=== PATIENT | female | born 1995 | race Caucasian/White ===

== ENCOUNTER → 2017-12-24 08:48 | Outpatient (CLI) | payer MEDICAID, SELFPAY ==
[2017-12-24 09:45] LABS: Glucose,Fasting 90 mg/dL (60-105)
== END ==
PROVIDERS: PCP Emergency Medicine; Visit Provider Obstetrics & Gynecology
DX: A49.9 Bacterial infection, unspecified (principal)
CPT/HCPCS: 82947

== ENCOUNTER → 2018-04-11 09:29 | Outpatient (CLI) | payer MEDICAID, SELFPAY ==
[2018-04-11 17:13] LABS: Basophils % 0.4 % (0.1-2.0); Eosinophils # 0.1 K/mm3 (0.0-0.4); Eosinophils % 1.1 % (0.1-12.0); Hematocrit 47.2 % (37.0-47.0); Hemoglobin 15.8 g/dL (12.2-16.2); Lymphocytes # 2.5 K/mm3 (0.7-4.5); Lymphocytes % 28.7 K/mm3 (10-50); Mean Corpuscular HGB Conc 33.4 g/dL (31.8-35.4); Mean Corpuscular Hemoglobin 30.3 pg (27.0-31.2); Mean Corpuscular Volume 90.7 fl (81-99); Monocytes # 0.3 K/mm3 (0.1-1.0); Monocytes % 3.8 % (1.7-9.3); Neutrophils # 5.7 K/mm3 (1.8-7.8); Platelet Count 341 K/mm3 (142-424); Red Blood Count 5.21 M/mm3 (4.20-5.40); Red Cell Distribution Width 11.9 % (11.5-17.5); White Blood Count 8.7 K/mm3 (4.8-10.8)
[2018-04-11 17:30] LABS: Alanine Aminotransferase 25 U/L (12-78); Albumin Level 4.7 gm/dL (3.4-5.0); Albumin/Globulin Ratio 1.5 (1.1-1.8); Alkaline Phosphatase 99 U/L (46-116); Anion Gap 15.1 mEq/L (5-15); Aspartate Amino Transferase 20 U/L (15-37); Bilirubin,Total 0.5 mg/dL (0.2-1.0); Blood Urea Nitrogen 10 mg/dL (7-18); Calcium 9.4 mg/dL (8.5-10.1); Carbon Dioxide 28 mmol/L (21.0-32.0); Chloride 101 mmol/L (98-107); Cholesterol 215 mg/dL (140-200); Creatinine,Serum 0.68 mg/dL (0.55-1.02); Estimated Glomerular Filt Rate 109 ml/min (>60); GFR (African American) 132 ML/MIN (>60); Globulin 3.1 gm/dl (1.3-3.2); Glucose 74 mg/dL (74-106); HDL Cholesterol 43 mg/dL (29-89); LDL Cholesterol 155 mg/dL (0-130); Potassium 4.1 mmoL/L (3.5-5.1); Sodium 140 mmol/L (136-145); T4 (Thyroxine) 9.5 ug/dl (4.7-13.3); Thyroid Stimulating Hormone 1.45 uIU/ml (0.358-3.740); Total Protein,Serum 7.8 gm/dL (6.4-8.2); Triglycerides 86 mg/dL (30-200); VLDL Cholesterol 17 mg/dL (0-40)
[2018-04-12 18:41] LABS: HIV Screen 4th Generation wRfx Non Reactive (Non Reactive); Hepatitis B Core Antibody IgM Negative (Negative)
[2018-04-14 06:10] LABS: HSV 2 IgG, Type Spec <0.91 index (0.00-0.90); Vitamin D 25 Hydroxy 26.1 ng/mL (30.0-100.0)
[2018-04-14 06:11] LABS: Rapid Plasma Reagin Ab Titer Non Reactive (NonRea<1:1)
== END ==
PROVIDERS: Nurse Practitioner Family; Visit Provider Obstetrics & Gynecology
DX: Z01.419 Encounter for gynecological examination (general) (routine) without abnormal findings (principal); B00.2 Herpesviral gingivostomatitis and pharyngotonsillitis; Z11.3 Encounter for screening for infections with a predominantly sexual mode of transmission
CPT/HCPCS: 36415; 80053; 80061; 82652; 84436; 84443; 85025; 86592; 86695; 86703; 86704; 86790; G0432

== ENCOUNTER → 2019-02-13 09:07 | Outpatient (CLI) | payer OTHER, MEDICAID, SELFPAY ==
--- NOTE | 2019-02-13 09:14 | XR_ITS ---
XR shoulder RT min 2V HISTORY: ITS.REASON: RT SHOULDER PAIN ORDERING PHYSICIAN: Marycarmen Sheffield PATIENT AGE: 23 years Comparison: None FINDINGS: No fracture or dislocation. No lytic or blastic change. There is normal mineralization. The joint spaces are well-preserved. No significant degenerative/arthritic changes. No erosive changes evident. IMPRESSION: Negative, no acute finding
== END ==
PROVIDERS: PCP Emergency Medicine; Visit Provider Nurse Practitioner Family
DX: M25.511 Pain in right shoulder (principal)
CPT/HCPCS: 73030

== ENCOUNTER 2019-03-30 08:30 | Outpatient (RCR) | payer OTHER, MEDICAID, SELFPAY | END 2019-03-30 08:35 | disposition home or self-care (01) | LOC: OT 08:30 | PROVIDERS: Visit Provider Orthopaedic Surgery Adult Reconstructive Orthopaedic Surgery | DX: M25.511 Pain in right shoulder (principal) | CPT/HCPCS: 97014; 97033; 97035; 97110; 97140; 97165; G0283 ==

== ENCOUNTER → 2019-04-23 12:26 | Outpatient (CLI) | payer OTHER, MEDICAID, SELFPAY ==
--- NOTE | 2019-04-23 12:30 | IR_ITS ---
MR shoulder RT w con, IR arthrogram shoulder RT HISTORY:Right shoulder injury with pain, limited range of motion ITS.REASON: RIGHT SHOULDER PAIN ORDERING PHYSICIAN: Altaf Wilcox PATIENT AGE: 23 years Comparison: None Arthrogram technique: Following obtaining informed consent and timeout under aseptic conditions and local anesthesia with 1% buffered lidocaine with fluoroscopic guidance a 23-gauge needle was inserted into the shoulder joint via the anterior subcoracoid approach 12 mL's of a mixture of gadolinium, Optiray 320, and lidocaine is injected. The patient tolerated the procedure well without evidence of immediate complication. Arthrographic images are obtained and then the patient was taken to MRI where MRI arthrogram was performed. Arthrographic findings: Contrast is localized within the shoulder joint as expected. There is no evidence of rotator cuff tear. No evidence of capsulitis. MRI findings: No evidence of rotator cuff tear. There is mild thickening of the supraspinatus tendon suggesting tendinopathy/tendinosis. There is extravasation into the subscapular region which was manifest on the post exercise images. The infraspinatus subscapularis and teres minor tendons are intact. There is a SLAP tear of the glenoid labrum. Posterior labrum has an unremarkable appearance. Bicipital tendon is in place. IMPRESSION: 1. SLAP tear of the anterior glenoid labrum. 2. Tendinopathy/tendinosis of the supraspinatus tendon.
== END ==
PROVIDERS: PCP Emergency Medicine; Visit Provider Orthopaedic Surgery Adult Reconstructive Orthopaedic Surgery
DX: S43.431A Superior glenoid labrum lesion of right shoulder, initial encounter (principal); M75.91 Shoulder lesion, unspecified, right shoulder
CPT/HCPCS: 73040; 73222; Q9967

== ENCOUNTER 2019-07-24 13:00 | Outpatient (RCR) | payer OTHER, MEDICAID, SELFPAY | END 2019-07-24 13:05 | disposition home or self-care (01) | LOC: OT 13:00 | PROVIDERS: Visit Provider Orthopaedic Surgery Adult Reconstructive Orthopaedic Surgery | DX: S43.431D Superior glenoid labrum lesion of right shoulder, subsequent encounter (principal); M75.41 Impingement syndrome of right shoulder | CPT/HCPCS: 97014; 97110; 97140; 97164; 97166; G0283 ==

== ENCOUNTER 2019-12-07 13:30 | Outpatient (RCR) | payer OTHER, SELFPAY | END 2019-12-07 13:35 | disposition home or self-care (01) | LOC: OT 13:30 | PROVIDERS: Visit Provider Orthopaedic Surgery Adult Reconstructive Orthopaedic Surgery | DX: S43.431A Superior glenoid labrum lesion of right shoulder, initial encounter (principal) | CPT/HCPCS: 97014; 97110; 97164; 97165; G0283 ==

== ENCOUNTER → 2020-07-08 14:50 | Outpatient (CLI) | payer OTHER, SELFPAY ==
--- NOTE | 2020-07-08 14:50 | US_ITS ---
PROCEDURE: US TRANSVAGINAL CLINICAL INDICATION: US T/V-DUB check IUD placement Dysfunctional uterine bleeding COMPARISON: US PTV US PELVIS-TRANSVAGINAL ONLY from 12/27/2016 FINDINGS: UTERUS: 8cm x 5cmx 3cm with a combined endometrial thickness of 4.1mm LEFT OVARY: [id number] with a volume of 10.6ml. RIGHT OVARY: [id number] with a volume of 14.4ml. There is an IUD present. The longitudinal component of the IUD is in the endometrium but is slightly low lower than expected not at the uterine fundus. The arms of the IUD extend lateral as expected. There are some calcifications noted within the endometrium at the fundus of the endometrium. Multiple small follicles are present involving the right ovary which is slightly enlarged with a volume of 14 mL. Multiple follicles also present involving the left ovary. The left ovary has a volume of 11 mL. No cul-de-sac fluid evident. IMPRESSION: 1. Low position of IUD overall not significantly changed. 2. Calcifications within the endometrium at the fundus of the uterus. 3. Bilateral ovarian polycystic appearance Dictated by: Christian Salazar MD 07/08/2020 16:17 Christian Salazar MD in [place] 07/08/2020 16:17
== END ==
PROVIDERS: PCP Nurse Practitioner Family; Visit Provider Obstetrics & Gynecology
DX: N93.8 Other specified abnormal uterine and vaginal bleeding (principal)
CPT/HCPCS: 76830

== ENCOUNTER → 2020-07-29 10:29 | Outpatient (CLI) | payer OTHER, SELFPAY ==
--- NOTE | 2020-07-29 10:33 | US_ITS ---
PROCEDURE: US EXTREMITY RT LIMITED CLINICAL INDICATION: RT AXILLA MASS COMPARISON: No exams were available for comparison FINDINGS: Ultrasound performed of the right axilla. There is a palpable nodule in the subcutaneous tissue which measures approximately 10 x 4 mm. This is hypoechoic and fairly well-circumscribed and may represent a small subcutaneous lymph node. This does not appear to represent an abscess. A small subcutaneous fibroma is also consideration. IMPRESSION: Hypoechoic 10 x 4 mm nodule in the right axilla corresponding to the palpable abnormality and could be due to small lymph node possibly a neuroma/fibroma. Recommend follow-up to confirm stability Dictated by: Christian Salazar MD 07/29/2020 13:20 Christian Salazar MD in [place] 07/29/2020 13:20
== END ==
PROVIDERS: PCP Nurse Practitioner Family; Visit Provider Nurse Practitioner Family
DX: R22.31 Localized swelling, mass and lump, right upper limb (principal)
CPT/HCPCS: 76882

== ENCOUNTER → 2020-08-03 11:16 | Outpatient (CLI) | payer OTHER, SELFPAY ==
[2020-08-03 11:50] LABS: Basophils % 0.4 % (0.1-2.0); Eosinophils # 0.1 K/mm3 (0.0-0.4); Eosinophils % 1.4 % (0.1-12.0); Hemoglobin 15.5 g/dL (12.2-16.2); Lymphocytes # 2.3 K/mm3 (0.7-4.5); Lymphocytes % 31.5 % (10-50); Mean Corpuscular HGB Conc 34.5 g/dL (31.8-35.4); Mean Corpuscular Hemoglobin 30.7 pg (27.0-31.2); Mean Platelet Volume 7.7 fl (7.4-10.4); Monocytes # 0.3 K/mm3 (0.1-1.0); Monocytes % 3.8 % (1.7-9.3); Neutrophils # 4.6 K/mm3 (1.8-7.8); Neutrophils % 63.1 % (37.0-80.0); Platelet Count 264 K/mm3 (142-424); Red Blood Count 5.06 M/mm3 (4.20-5.40); Red Cell Distribution Width 12.6 % (11.5-17.5); White Blood Count 7.2 K/mm3 (4.8-10.8)
[2020-08-03 12:10] LABS: Urine Pregnancy, HCG Qual. Negative (Negative)
[2020-08-03 12:54] LABS: Alanine Aminotransferase 13 U/L (12-78); Albumin Level 4.7 g/dl (3.5-5.0); Albumin/Globulin Ratio 1.8 (1.1-1.8); Alkaline Phosphatase 66 U/L (38-126); Anion Gap 12.4 mEq/L (5-15); Aspartate Amino Transferase 24 U/L (14-36); Bilirubin,Total 0.8 mg/dl (0.2-1.3); Blood Urea Nitrogen 12 mg/dl (7-17); Calcium 9.6 mg/dl (8.4-10.2); Carbon Dioxide 29 mmol/L (22.0-30.0); Chloride 103 mmol/L (98-107); Estimated Glomerular Filt Rate 103 ml/min (>60); GFR (African American) 124 ML/MIN (>60); Globulin 2.6 g/dL (1.3-3.2); Glucose 93 mg/dl (74-100); Potassium 4.4 mmoL/L (3.5-5.1); Sodium 140 mmol/L (136-145); Total Protein,Serum 7.3 g/dl (6.3-8.2)
[2020-08-03 14:34] LABS: Coronavirus 19 IgG Antibody Negative (Negative); Coronavirus 19 IgM Antibody Negative (Negative)
== END ==
PROVIDERS: Visit Provider Obstetrics & Gynecology
DX: Z01.818 Encounter for other preprocedural examination (principal); R10.2 Pelvic and perineal pain
CPT/HCPCS: 36415; 80053; 81025; 85025; 86328

== ENCOUNTER 2020-08-05 10:43 | Day surgery (SDC) | payer OTHER, SELFPAY ==
[2020-08-02 15:23] VITALS: BMI 20.9
[2020-08-05] VITALS (10 sets, daily range): BP systolic 111–125; BP diastolic 57–86; PULSE 62–82; RESP 18; TEMP 36.2–36.5; O2SAT 95–99
--- NOTE | 2020-08-05 11:44 | P.PN_ITS ---
[facility] Anesthesia Checklist - Patient Identification Patient Identification: Arm Band - Structural Data Admitted From: Home Planned Operative Procedure/s: Hysteroscopy, D&C, Novasure Ablation, Dx Laparoscopy, BTL, IUD removal Consent for Planned Operative Procedure(s) Verified: Yes Verified Documents: Surgical Consent, History and Physical - NPO Status Verified Time NPO: 00:00 - Additional verifications Anesthesia Reactions: No Hx Blood Transfusions: No Blood Transfusion Reaction: No - Airway Assessment C-Spine Mobility Assessed: Yes (mp1) TMJ Mobility Assessed: Yes Dentition: Good Dentition - Neurological Assessment Level of Consciousness: Awake, Alert - Anesthesia Plan Anesthesia Risk discussed: Yes Anesthesia Plan: Verified ASA Class: II Anesthesia Type: General [facility] History I have reviewed the patient's past medical history: Yes Medical History: Denies:: Cancer, Diabetes Mellitus Type 1, Diabetes Mellitus Type 2, Internal Pacemaker, MRSA, Seizures *Have you ever received a pneumonia vaccine?: No *Have you received a flu vaccine this season?: No Other Medical History: Reports: Other. Denies: Blood Transfusion Reaction Anesthesia experience/problems:: nac Laterality Cases: Bilateral: Tonsillectomy Other Surgeries: Yes: Dilation and Curettage, Other. No: Pacemaker Amputation: No Fractures: No - *Social History Smoking Status: Current every day smoker Tobacco Type: cigarettes # Packs/Day (cigarettes): 1 #Yrs smoked (if former smoker): 3 Alcohol Intake: never Alcohol Intake Frequency:: a few times a month Substance Use Type: denies use *Occupational Status:: employed Housing: house Household Members: children *Travel in the last 8 weeks: None Family Hx:: Hypertension, Cancer [employer]LECTION MANAGER history: Non-contributory
--- NOTE | 2020-08-05 16:19 | P.PN_ITS ---
[facility] Anesthesia Record Part I Intake, IV Amount: 950 Estimated blood loss (mL): 10 Urine output (mL): 25 Blood Products used (#): none Blood Pressure: 118/86 SaO2: 95 Pulse Rate: 82 Respiratory Rate: 18 Temperature: 97.7 F Patient is:: Drowsy, Stable Stable to PACU at:: 16:15
--- NOTE | 2020-08-05 16:19 | HMH.OPNOTE ---
Date of procedure: 08/05/20 Pre-op Diagnosis:: 1. DUB 2. HMB 3. Pelvic pain 4. endometriosis 5. PCOS 6. IUD in place 7. Undesired fertility Post-op Diagnosis:: same Procedure performed:: 1. IUD Removal 2. Laparoscopic tubal ligation 3. D&C Hysteroscopy 4. Novasure endometrial ablation Surgeon:: Angela Villatoro MD CIRCULAR SHEAR OPERATOR:: Bala Recinos Anesthesia: GETA Estimated blood loss (mL): 10 Operative findings:: grossly normal ovaries bilaterally grossly normal fallopian tubes bilaterally grossly normal uterus and endometrial cavity Operative note:: The IUD strings were grasped with a ring forcep and the IUD was removed, intact, without complication. LAPAROSCOPY: The patient was taken to the operating room and general anesthesia was administered. She was prepped/draped in lithotomy position. A uterine manipulator was placed without difficulty. Gloves were changed and attention was turned to the abdomen. A 5mm skin incision was made in the umbilical fold and the Verees needle was inserted through the peritoneum and into the abdominal cavity in standard fashion. The abdomen was insufflated with CO2 gas. A 5mm non-bladed trocar was inserted directly into the abdominal cavity and appropriate placement was confirmed with the laparoscope. No intra-abdominal injuries occurred during entry into the abdominal cavity, as confirmed visually with the laparoscope. The patient was placed in trendelenburg and a 8mm skin incision was made 2cm above the pubic symphysis. A 8mm non-bladed trocar was inserted under direct visualization, without complication. The uterus was elevated out of the pelvis in order to better visualize the anatomy. A survey of the pelvis and abdomen revealed the findings noted above. The uterus was angled towards the patient right and the left fallopian tube was grasped and a Filshie clip was placed over the tube. The clip was noted to completely occlude the tube, but an additional clip was placed across the tube medial to the first clip, as an additional precaution. The uterus was then angled towards the patient left, and the right fallopian tube was grasped and a Filshie clip was placed over the tube. The clip was noted to completely occlude the tube, but an additional clip was placed across the tube medial to the first clip, as an additional precaution. The uterine manipulator was removed. The abdomen was then evacuated of gas and all trocars removed. The skin incisions were closed with Dermabond. The patient tolerated the procedure well. Sponge/lap/needle/instrument counts were correct at conclusion of procedure. She was taken out of lithotomy position and awakened from anesthesia, and was taken to the recovery room in stable condition. HYSTEROSCOPY: Attention was then turned to the vagina, and the uterine manipulator was removed. The anterior lip of the cervix was grasped with a single tooth tenaculum and the cervix was dilated with Link dilators of serially increasing size until the external os was able to accomodate the hysteroscope. The hysteroscope was advanced through the cervix and into the uterine cavity, which was distended with LR. Once the uterus was sufficiently distended, the cavity was evaluated and revealed no polyps or fibroids. Sharp curettage was performed and the specimen sent for pathology. The uterine cavity sounded to a length of 4.5cm. The Novasure was inserted through the cervix and expanded to fit the width of the uterus, with a width of 3.1cm. After a successful cavity assessment, the device was deployed and the endometrial ablation was completed in 110 seconds. Once the device had turned off, the Novasure was removed from the uterus and the hysteroscope was reinserted into the uterine cavity. The cavity appeared diffusely cauterized. The hysteroscope was removed from the uterus and all instruments removed from the vagina. The tenaculum site was hemostatic. All sponge/lap/
--- NOTE | 2020-08-05 16:34 | PC.NURSE ---
1625- pt shivering, warm blankets on- pt states she is not cold. see emar for medicinal chemist
--- NOTE | 2020-08-05 17:26 | PC.ADMIT ---
[id number] Admission Note: The patient,Leda Deng,25 y/o, was given written information regarding hospital policies, unit procedures and contact persons. Patient's smoking status: Current every day smoker. Vital Signs - 8 hr 08/05/20 11:25 08/05/20 16:15 08/05/20 16:20 Temperature 97.7 F 97.7 F 97.7 F Pulse Rate 82 Pulse Rate [Right Brachial] 70 82 Respiratory Rate 18 18 18 Blood Pressure 118/86 Blood Pressure [Right Arm] 119/67 118/86 02 Sat by Pulse Oximetry 98 95 08/05/20 16:25 08/05/20 16:35 08/05/20 16:45 Temperature Pulse Rate Pulse Rate [Right Brachial] 72 63 62 Respiratory Rate 18 18 18 Blood Pressure Blood Pressure [Right Arm] 123/83 122/82 125/77 02 Sat by Pulse Oximetry 96 96 96 08/05/20 16:46 08/05/20 17:01 08/05/20 17:14 Temperature 97.2 F L Pulse Rate Pulse Rate [Right Brachial] 75 63 63 Respiratory Rate 18 18 18 Blood Pressure Blood Pressure [Right Arm] 119/70 111/57 L 116/68 02 Sat by Pulse Oximetry 98 99 99
--- NOTE | 2020-08-05 17:27 | SUR.PHASEII ---
Pt still nauseated but tolerating. Phenergan 6.25mg IV given per Zev COLON.
--- NOTE | 2020-08-06 02:54 | HMH.ANESII ---
[facility] Anesthesia Record Part II Discharge Time: 16:45 Destination: Surgical Day Care (OP Surgery) PACU nurse assessment reviewed?: Yes Patient Condition:: Good Anesthesia Complications:: None Swallowing reflex intact?: Yes Cyanosis?: No Blood Pressure: 119/70 Pulse Rate: 75 Temperature: 97.2 F Mental Status: Alert & Oriented Pain level:: 2 Nausea and/or vomitting:: None Intake, IV Amount: 25
[2020-08-06 02:55] VITALS: BP 119/70; PULSE 75; TEMP 36.2
== END 2020-08-05 17:27 | disposition home or self-care (01) ==
LOC: OR 10:45
PROVIDERS: PCP Nurse Practitioner Family; Visit Provider Obstetrics & Gynecology
PROC: 0U5B8ZZ Destruction of Endometrium, Via Natural or Artificial Opening Endoscopic (ICD-10-PCS; CPT 58563; principal; 2020-08-05 13:00)
DX: N93.8 Other specified abnormal uterine and vaginal bleeding (principal); N92.6 Irregular menstruation, unspecified; E28.2 Polycystic ovarian syndrome; N80.9 Endometriosis, unspecified; Z97.5 Presence of (intrauterine) contraceptive device; Z30.2 Encounter for sterilization; Z90.89 Acquired absence of other organs; Z72.0 Tobacco use; Z80.9 Family history of malignant neoplasm, unspecified; Z82.49 Family history of ischemic heart disease and other diseases of the circulatory system; Z88.1 Allergy status to other antibiotic agents; Z91.048 Other nonmedicinal substance allergy status
CPT/HCPCS: 58301; 58671; 58563; 96374; J2405; J2710

== ENCOUNTER → 2021-08-14 16:48 | Outpatient (CLI) | payer OTHER, SELFPAY ==
[2021-08-14 18:15] LABS: HCG,Quantitative < 2 mIU/ml (0-5.42)
== END ==
PROVIDERS: Visit Provider Obstetrics & Gynecology
DX: Z32.00 Encounter for pregnancy test, result unknown (principal)
CPT/HCPCS: 36415; 84702

== ENCOUNTER 2022-01-23 17:59 | Emergency (ER) | payer BC, OTHER, SELFPAY ==
[2022-01-23 18:20] VITALS: BP 131/68; PULSE 69; RESP 18; TEMP 36.7; O2SAT 100; BMI 20.9
[2022-01-23 18:54] LABS: Microscopic, Urine URINE MICROSCOPIC (MICROSCOPIC)
[2022-01-23 18:56] LABS: Basophils # 0.2 K/mm3 (0-0.2); Basophils % 2.7 % (0.1-2.0); Eosinophils # 0.1 K/mm3 (0.0-0.4); Eosinophils % 0.9 % (0.1-12.0); Hematocrit 43.1 % (37.0-47.0); Hemoglobin 14.2 g/dL (12.2-16.2); Lymphocytes # 2.9 K/mm3 (0.7-4.5); Lymphocytes % 36.9 % (10-50); Mean Corpuscular Hemoglobin 30.6 pg (27.0-31.2); Mean Corpuscular Volume 92.6 fl (81-99); Mean Platelet Volume 8.3 fl (7.4-10.4); Monocytes # 0.3 K/mm3 (0.1-1.0); Monocytes % 3.9 % (1.7-9.3); Neutrophils # 4.4 K/mm3 (1.8-7.8); Neutrophils % 55.6 % (37.0-80.0); Platelet Count 257 K/mm3 (142-424); Red Blood Count 4.66 M/mm3 (4.20-5.40); Red Cell Distribution Width 12.8 % (11.5-17.5); White Blood Count 7.9 K/mm3 (4.8-10.8)
[2022-01-23 18:59] LABS: Chloride 96 mmol/L (98-107); Potassium 3.4 mmoL/L (3.5-5.1); Sodium 132 mmol/L (136-145)
[2022-01-23 19:02] LABS: Alanine Aminotransferase 14 U/L (12-78); Albumin Level 4.8 g/dl (3.5-5.0); Albumin/Globulin Ratio 1.8 (1.1-1.8); Alkaline Phosphatase 58 U/L (38-126); Anion Gap 10.4 mEq/L (5-15); Aspartate Amino Transferase 29 U/L (14-36); Bilirubin,Total 0.5 mg/dl (0.2-1.3); Blood Urea Nitrogen 10 mg/dl (7-17); Calcium 8.4 mg/dl (8.4-10.2); Carbon Dioxide 29 mmol/L (22.0-30.0); Creatinine Clearance Estimated 138 mL/min (50-200); Estimated Glomerular Filt Rate 122 ml/min (>60); GFR (African American) 147 ML/MIN (>60); Globulin 2.6 g/dL (1.3-3.2); Glucose 79 mg/dl (74-100); Total Protein,Serum 7.4 g/dl (6.3-8.2)
[2022-01-23 19:03] LABS: Appearance,Urine CLEAR (Clear); Bilirubin,Urine Negative (Negative); Blood, Urine Negative (Negative); Color,Urine YELLOW (Yellow); Glucose,Urine (UA) Negative (Negative); Ketones,Urine Negative (Negative); Leukocyte Esterase,Urine Negative (Negative); Nitrate,Urine Negative (Negative); Protein,Urine Negative (Negative); Urobilinogen,Urine 0.2 EU/dl (0.2)
--- NOTE | 2022-01-23 19:04 | HMH.EDGENADL ---
ED Disposition Clinical Impression: Right sided abdominal pain Disposition: Home, Self-Care Condition on Discharge: Good Instructions: DI for Abdominal Pain-Adult Additional Instructions: Follow-up with your primary care provider to discuss gallbladder ultrasound. Additional instructions for ABDOMINAL PAIN: See your physician as soon as possible for further evaluation. Return immediately if worsening abdominal pain, vomiting, shortness of breath, fever, vomiting of blood or abdominal distention. Referrals: Myrna Mixon APRN [Primary Care Provider] - - Critical Care Critical Care Time: No Attestation: On 01/23/22, the high probability of a clinically significant, sudden or life threatening deterioration of the following system(s) required my full and direct attention, intervention and personal management. The time I documented below is in addition to time spent performing reported procedures but includes the following listed in this critical care notation. Medical Decision Making - Marcel Inquiry Pt receiving controlled substance: No Vital Signs: 01/23/22 18:20 Temperature 98.1 F Temperature Source Oral Pulse Rate [Left Radial] 69 Respiratory Rate 18 Blood Pressure [Right Arm] 131/68 Blood Pressure Mean [Right Arm] 89 02 Sat by Pulse Oximetry 100 - Lab Data Lab Results 01/23/22 18:19: Urine Color Yellow, Urine Appearance Clear, Urine pH 8.0, Ur Specific Bradley 1.020, Urine Protein Negative, Urine Glucose (UA) Negative, Urine Ketones Negative, Urine Blood Negative, Urine Nitrate Negative, Urine Bilirubin Negative, Urine Urobilinogen 0.2, Ur Leukocyte Esterase Negative, Urine RBC None, Urine WBC 3-5, Ur Squamous Epith Cells 5-10, Urine Bacteria Trace 01/23/22 18:19: WBC 7.9, RBC 4.66, Hgb 14.2, Hct 43.1, MCV 92.6, MCH 30.6, MCHC 33.0, RDW 12.8, Plt Count 257, MPV 8.3, Neut % (Auto) 55.6, Lymph % (Auto) 36.9, Gove % (Auto) 3.9, Eos % (Auto) 0.9, Baso % (Auto) 2.7 H, Neut # (Auto) 4.4, Lymph # (Auto) 2.9, Gove # (Auto) 0.3, Eos # (Auto) 0.1, Baso # (Auto) 0.2 01/23/22 18:19: Sodium 132 L, Potassium 3.4 L, Chloride 96 L, Carbon Dioxide 29, Anion Gap 10.4, BUN 10, Creatinine 0.60, Estimated Creat Clear 138, Estimated GFR 122, Est GFR ( Amer) 147, Glucose 79, Calcium 8.4, Total Bilirubin 0.5, AST 29, ALT 14, Alkaline Phosphatase 58, Total Protein 7.4, Albumin 4.8, Globulin 2.6, Albumin/Globulin Ratio 1.8 01/23/22 18:19: Lipase 32 01/23/22 18:19: Serum HCG, Qual Negative Result diagrams: 01/23/22 18:19 01/23/22 18:19 Orders (Tests/Meds): ED MEDICATIONS Generic Name Dose Route Start Last Admin Trade Name Freq PRN Reason Stop Dose Admin Sodium Chloride 10 ml 01/23/22 18:32 Sodium Chloride 0.9% 10ml Flush Syringe IV 02/22/22 18:31 NEEDED PRN Maintain IV Site Discontinued Medications Generic Name Dose Route Start Last Admin Trade Name Freq PRN Reason Stop Dose Admin Iopamidol 75 ml 01/23/22 19:36 01/23/22 19:37 Iopamidol-370 (76%);100ml Bottle IV 01/23/22 19:37 75 ml ONCE ONE Administration Sodium Chloride 10 ml 01/23/22 19:36 01/23/22 19:37 Sodium Chloride 0.9% 10ml Syr (Rad Only) IV 01/23/22 19:37 10 ml ONCE ONE Administration - CT Data CT Scan: Abdomen, Pelvis Time Received: 20:[address] Reviewed: Yes: I have viewed the radiologist's interpretation Findings Narrative: PROCEDURE INFORMATION: Exam: CT Abdomen And Pelvis With Contrast Exam date and time: 01/23/2022 7:11 PM Age: 26 years old Clinical indication: Abdominal pain; Localized; Right; Additional info: Right sided abdominal pain TECHNIQUE: Imaging protocol: Computed tomography of the abdomen and pelvis with contrast. Radiation optimization: All CT scans at this facility use at least one of these dose optimization techniques: automated exposure control; mA and/or kV adjustment per patient size (includes targeted exams where dose is matched to clinical indic
--- NOTE | 2022-01-23 19:11 | CT_ITS ---
PROCEDURE INFORMATION: Exam: CT Abdomen And Pelvis With Contrast Exam date and time: 01/23/2022 7:11 PM Age: 26 years old Clinical indication: Abdominal pain; Localized; Right; Additional info: Right sided abdominal pain TECHNIQUE: Imaging protocol: Computed tomography of the abdomen and pelvis with contrast. Radiation optimization: All CT scans at this facility use at least one of these dose optimization techniques: automated exposure control; mA and/or kV adjustment per patient size (includes targeted exams where dose is matched to clinical indication); or iterative reconstruction. Contrast material: ISOVUE; Contrast volume: 75 ml; Contrast route: IV; COMPARISON: PTV US PELVIS-TRANSVAGINAL ONLY 12/27/2016 10:47 AM FINDINGS: Lungs: Lung bases are clear. Liver: There is enlargement of the liver, measuring 19.6 cm. The liver is otherwise unremarkable. Gallbladder and bile ducts: The gallbladder is contracted. There is no evidence of biliary ductal dilation. Pancreas: Normal. No ductal dilation. Spleen: Normal. No splenomegaly. Adrenal glands: Normal. No mass. Kidneys and ureters: Normal. No hydronephrosis. Stomach and bowel: No bowel obstruction or significant bowel wall thickening. There is excessive colonic stool content. Appendix: A normal appendix is identified. Intraperitoneal space: No free fluid, fluid collections, or pneumoperitoneum. Vasculature: Unremarkable. No abdominal aortic aneurysm. Lymph nodes: No retroperitoneal, pelvic, or mesenteric adenopathy. Urinary bladder: Unremarkable as visualized. Reproductive: Bilateral tubal ligation clips. The reproductive organs are otherwise unremarkable. Bones/joints: Unremarkable. No acute fracture. Soft tissues: No acute body wall soft tissue findings. IMPRESSION: 1. No acute abdominopelvic pathology. 2. Incidental findings as above.
[2022-01-23 19:24] LABS: HCG Qualitative, Serum Negative (Negative)
[2022-01-23 19:26] LABS: Lipase 32 U/L (23-300)
[2022-01-23 19:34] LABS: Bacteria,Urine Trace /lpf
[2022-01-23 20:33] VITALS: BP 118/72; PULSE 66; RESP 19; TEMP 36.6; O2SAT 100
== END 2022-01-23 21:00 | disposition home or self-care (01) ==
PROVIDERS: Emergency Provider Emergency Medicine; PCP Nurse Practitioner Family
DX: R10.31 Right lower quadrant pain (principal); N80.9 Endometriosis, unspecified; F17.210 Nicotine dependence, cigarettes, uncomplicated
CPT/HCPCS: 74177; 80053; 81001; 83690; 84703; 85025; 99284; Q9967

== ENCOUNTER 2022-07-27 11:48 | Emergency (ER) | payer BC, OTHER, SELFPAY ==
[2022-07-27 11:49] VITALS: BP 125/75; PULSE 67; RESP 16; TEMP 36.8; O2SAT 97; BMI 19.7
[2022-07-27 12:19] LABS: Adenovirus F 40/41, stool Not Detected (NotDetected); Astrovirus Not Detected (NotDetected); Campylobacter Not Detected (NotDetected); Clostridium Difficile A/B, PCR Not Detected (NotDetected); Cryptosporidium Not Detected (NotDetected); Cyclospora Cayetanesis Not Detected (NotDetected); Entamoeba histolytica Not Detected (NotDetected); Enteroaggregative E coli Not Detected (NotDetected); Enteropathogenic E coli Not Detected (NotDetected); Enterotoxigenic E coli Not Detected (NotDetected); Giardia lamblia Not Detected (NotDetected); Norovirus Not Detected (NotDetected); Plesimonas Shigalloides, PCR Not Detected (NotDetected); Rotavirus A Not Detected (NotDetected); Salmonella, PCR Not Detected (NotDetected); Sapovirus Not Detected (NotDetected); Shiga-like toxin E coli Not Detected (NotDetected); Shigella Enterovasive E coli Not Detected (NotDetected); Vibrio Cholerae Not Detected (NotDetected); Vibrio, PCR Not Detected (NotDetected); Yersinia Entercolitica, PCR Not Detected (NotDetected)
--- NOTE | 2022-07-27 12:29 | HMH.EDGENADL ---
Discharge Plan Disposition Patient Disposition: Home, Self-Care Condition: Good Prescriptions Prescriptions: New ciprofloxacin HCl [Cipro] 500 mg tablet 500 mg PO BID Qty: 20 0RF metronidazole 500 mg tablet 500 mg PO TID Qty: 30 0RF No Action clobetasol 0.05 % ointment 1 applic TOPICAL DAILY Qty: 45 3RF estradiol [Vagifem] 10 mcg tablet 20 mcg VG DAILY 30 Days Qty: 60 11RF fluconazole [Diflucan] 150 mg tablet 150 mg PO Q3D 0 Days Qty: 2 0RF Rx Instructions: may repeat second dose 72 hrs after first dose if symptoms persist Referrals Follow up/Referrals: Myrna Mixon APRN [Primary Care Provider] - See instructions Activity Restrictions/Add. Instructions Additional Instructions/Restrictions: Take Cipro and Flagyl as prescribed. Follow-up with your primary care provider next week. Return to the emergency department if worsening/severe pain, fever, severe bleeding and bowel movements, intractable vomiting. Clinical Impressions Clinical Impression: Colitis Instructions Patient Instructions: DI for Colitis Discharge ED Provider: Josh Jane General Adult HPI General Chief complaint: Nausea/Vomiting/Diarrhea Stated complaint: rectal bleeding Time Seen by Provider: 07/27/22 12:21 Mode of Arrival: Ambulatory Source of Information: Patient Limitations: No Limitations Description of Symptoms (Recalled from ER Triage Doc. by RN): Pt c/o continuous diarrhea and abd cramping since 0600 this AM. Advises that now that all she is having out is bright red blood. History of Present Illness HPI narrative: States she had profuse diarrhea starting at 620 this morning. At about 1030 she began passing blood and has passed blood 5 times. She has pain in the infraumbilical midline. No fever. No vomiting. No recent travel or antibiotics. No history of rectal bleeding in the past. She is not on any blood thinners. She has taken ibuprofen and Imodium for her symptoms. Related Data Previous Rx's Medication Instructions Recorded clobetasol 0.05 % topical ointment 1 applic topical DAILY #45 grams 03/06/22 estradiol 10 mcg vaginal tablet 20 mcg vaginal DAILY 30 days #60 05/14/22 (Vagifem) tabs fluconazole 150 mg tablet 150 mg PO Q3D 2 doses #2 tabs 06/05/22 (Diflucan) ciprofloxacin HCl 500 mg tablet 500 mg PO BID #20 tabs 07/27/22 (Cipro) metronidazole 500 mg tablet 500 mg PO TID #30 tabs 07/27/22 Allergies Allergy/AdvReac Type Severity Reaction Status Date / Time adhesive tape [ADHESIVE TAPE] Allergy Intermediate I-RASH Verified 05/08/22 15:40 clindamycin [From CLEOCIN] Allergy Intermediate I-RASH Verified 05/08/22 15:40 nickel Allergy Intermediate Verified 05/08/22 15:40 red dye Allergy Unknown NA-NAUSEA/V Verified 05/08/22 15:40 OMITING TAMPONS Allergy Intermediate Uncoded 05/08/22 15:40 PFSH PFSH Social History Smoking Status: Current every day smoker tobacco type: cigarettes packs per day: 1 second hand exposure: Yes alcohol intake: never counseling provided: none substance use type: denies use current occupational status: employed Travel in the last 8 weeks: None household members: children housing: house current occupational exposures/hazards: No caffeine: No ROS Obtained: Yes Systems reviewed as appropriate & no additional complaints except as documented Constitutional Constitutional: Denies fever(s) Gastrointestinal Gastrointestingal: Reports abdominal pain, diarrhea and hematochezia; Denies vomiting Physical Exam General General appearance: alert and in no apparent distress Head Head exam: atraumatic and normocephalic Eye Eye exam: Present normal appearance and EOMI ENT ENT exam: Present mucous membranes moist Neck Neck exam: Present normal inspection and trachea midline Chest Chest inspection: Present normal inspection and symmetric chest wall rise Respiratory Respiratory exam: Present normal lung sounds bilaterally
--- NOTE | 2022-07-27 12:30 | CT_ITS ---
FINAL REPORT TECHNIQUE: After the administration of oral and intravenous contrast, axial images were obtained through the abdomen and pelvis by computed tomography. The study was performed with techniques to keep radiation dose as low as reasonably achievable, (ALARA). Individual dose reduction techniques using automated exposure control or adjustment of mA and/or kV according to the patient's size were employed. CLINICAL HISTORY: abdo pain, rectal bleeding, diarrhea COMPARISON: 01/23/2022 FINDINGS: Abdomen: The lung bases are clear. The liver is normal in size and attenuation. The gallbladder is present. The spleen is unremarkable. The adrenals are normal. The pancreas is unremarkable. The kidneys enhance appropriately. The aorta is normal in caliber. There is no free fluid or adenopathy. Pelvis: The appendix is not identified. There is a probable corpus luteum cyst in the right ovary measuring 23 mm. There is wall thickening of the transverse colon, descending colon, sigmoid colon and rectum consistent with colitis. The urinary bladder is unremarkable. There is no free fluid or adenopathy. IMPRESSION: Findings consistent with colitis. Reviewed, Interpreted and Dictated by Caleb Mendiola III, MD Transcribed by Tamiko Huizar Authenticated and . [facility]
[2022-07-27 12:55] LABS: Basophils # 0.1 K/mm3 (0-0.2); Eosinophils % 0.6 % (0.1-12.0); Hematocrit 41.2 % (37.0-47.0); Hemoglobin 13.4 g/dL (12.2-16.2); Lymphocytes # 1.8 K/mm3 (0.7-4.5); Mean Corpuscular HGB Conc 32.5 g/dL (31.8-35.4); Mean Corpuscular Hemoglobin 30.3 pg (27.0-31.2); Mean Corpuscular Volume 93.4 fl (81-99); Mean Platelet Volume 8.6 fl (7.4-10.4); Monocytes # 0.3 K/mm3 (0.1-1.0); Monocytes % 4.4 % (1.7-9.3); Neutrophils # 5.1 K/mm3 (1.8-7.8); Neutrophils % 70.2 % (37.0-80.0); Platelet Count 253 K/mm3 (142-424); Red Blood Count 4.41 M/mm3 (4.20-5.40); Red Cell Distribution Width 12.5 % (11.5-17.5); White Blood Count 7.3 K/mm3 (4.8-10.8)
[2022-07-27 13:01] LABS: Alanine Aminotransferase 17 U/L (12-78); Albumin Level 4.3 g/dl (3.5-5.0); Albumin/Globulin Ratio 1.7 (1.1-1.8); Alkaline Phosphatase 64 U/L (38-126); Anion Gap 10.7 mEq/L (5-15); Aspartate Amino Transferase 28 U/L (14-36); Bilirubin,Total 0.4 mg/dl (0.2-1.3); Blood Urea Nitrogen 10 mg/dl (7-17); Calcium 9.2 mg/dl (8.4-10.2); Carbon Dioxide 25 mmol/L (22.0-30.0); Chloride 104 mmol/L (98-107); Creatinine Clearance Estimated 128 mL/min (50-200); Estimated Glomerular Filt Rate 121 ml/min (>60); GFR (African American) 146 ML/MIN (>60); Globulin 2.5 g/dL (1.3-3.2); Glucose 95 mg/dl (74-100); Potassium 3.7 mmoL/L (3.5-5.1); Sodium 136 mmol/L (136-145); Total Protein,Serum 6.8 g/dl (6.3-8.2)
[2022-07-27 13:06] LABS: C-Reactive Protein < 0.3 mg/L (0-4)
[2022-07-27 13:08] LABS: HCG Qualitative, Serum Negative (Negative)
[2022-07-27 13:25] LABS: Procalcitonin < 0.030 ng/mL (0.0-2.0)
[2022-07-27 13:30] LABS: Erythrocyte Sedimentation Rate 8 mm/hr (0-20)
--- NOTE | 2022-07-27 14:53 | PC.NURSE ---
checked on pt at this time, updated pt we are waiting on results of diarrhea panel shouldn't be much longer on results. Pt states no needs at this time.
--- NOTE | 2022-07-27 15:05 | PC.NURSE ---
ER at discussing test results and POC
[2022-07-27 15:25] VITALS: BP 116/56; PULSE 64; RESP 15; TEMP 36.9; O2SAT 100
== END 2022-07-27 15:26 | disposition home or self-care (01) ==
PROVIDERS: Emergency Provider Emergency Medicine; PCP Nurse Practitioner Family
DX: K62.5 Hemorrhage of anus and rectum (principal); K52.9 Noninfective gastroenteritis and colitis, unspecified; F17.210 Nicotine dependence, cigarettes, uncomplicated; Z79.890 Hormone replacement therapy; Z79.899 Other long term (current) drug therapy; Z88.8 Allergy status to other drugs, medicaments and biological substances; Z91.048 Other nonmedicinal substance allergy status
CPT/HCPCS: 74177; 80053; 84145; 84703; 85025; 85651; 86140; 87506; 96360; 99285; Q9967

== ENCOUNTER → 2022-12-14 14:39 | Outpatient (CLI) | payer BC, OTHER, SELFPAY ==
--- NOTE | 2022-12-14 14:39 | US_ITS ---
PROCEDURE INFORMATION: Exam: US Right Breast, Complete Exam date and time: 12/14/2022 2:56 PM Age: 27 years old Clinical indication: Mass of RT breast 9 o'clock-rapid increase in size TECHNIQUE: Imaging protocol: Complete ultrasound of all four quadrants of the Right breast and the retroareolar regions, including ultrasound of the axilla when performed. COMPARISON: None FINDINGS: Breast: Sonographic images of the right breast including the retroareolar region, all 4 quadrants and the axilla do not demonstrate any solid or cystic masses. This is with particular attention to the right 6 and 9 o'clock axes where palpable abnormalities were noted. No architectural distortion or acoustical shadowing. No skin thickening or axillary adenopathy. IMPRESSION: No sonographic evidence of malignancy. No focal abnormalities in the right 6 are 9 o'clock axes were palpable abnormalities were noted.Further evaluation of a palpable abnormality should be based on clinical grounds regardless of radiographic findings or lack thereof. ASSESSMENT: BI-RADS Category 1: Negative
[2022-12-14 19:02] LABS: Thyroid Stimulating Hormone < 0.02 uIU/mL (0.465-4.68)
[2022-12-16 07:28] LABS: Estradiol 44.3 pg/mL (.); LH 9.7 mIU/mL (.); Progesterone 2.7 ng/mL (.); Prolactin 10.8 ng/mL (4.8-23.3)
[2022-12-16 08:24] LABS: FSH 4.2 mIU/mL (.)
== END ==
PROVIDERS: PCP Nurse Practitioner Family; Visit Provider Obstetrics & Gynecology
DX: N63.11 Unspecified lump in the right breast, upper outer quadrant (principal); E28.2 Polycystic ovarian syndrome
CPT/HCPCS: 36415; 76641; 82670; 83001; 83002; 84144; 84146; 84443

== ENCOUNTER → 2023-03-26 14:29 | Outpatient (CLI) | payer BC, OTHER, SELFPAY ==
[2023-03-26 13:37] LABS: Microscopic, Urine URINE MICROSCOPIC (MICROSCOPIC)
[2023-03-26 14:04] LABS: Appearance,Urine CLEAR (Clear); Blood, Urine 3+ (Negative); Color,Urine YELLOW (Yellow); Glucose,Urine (UA) Negative (Negative); Ketones,Urine Negative (Negative); Leukocyte Esterase,Urine 2+ (Negative); Nitrate,Urine POSITIVE (Negative); PH,Urine 6.5 (5.0-8.5); Protein,Urine 3+ (Negative); Specific Gravity, Urine 1.025 (1.005-1.030)
[2023-03-26 14:09] LABS: Bilirubin,Urine 1+ (Negative)
[2023-03-26 14:59] LABS: RBC,Urine TNTC #/hpf (0-3)
[2023-03-26 15:00] LABS: Bacteria,Urine 2+ /lpf; Squamous Epithelial Cell,Urine Occasional #/hpf (0-5)
== END ==
PROVIDERS: PCP Nurse Practitioner Family; Visit Provider Nurse Practitioner Family
DX: N39.0 Urinary tract infection, site not specified (principal); B96.29 Other Escherichia coli [E. coli] as the cause of diseases classified elsewhere
CPT/HCPCS: 81001; 87086; 87088; 87186

== ENCOUNTER → 2023-08-27 16:19 | Outpatient (CLI) | payer BC, OTHER, SELFPAY ==
[2023-08-27 12:14] LABS: Basophils % 0.4 % (0.1-2.0); Eosinophils # 0.1 K/mm3 (0.0-0.4); Eosinophils % 2.2 % (0.1-12.0); Hematocrit 42.4 % (37.0-47.0); Hemoglobin 13.9 g/dL (12.2-16.2); Lymphocytes # 2.5 K/mm3 (0.7-4.5); Lymphocytes % 45.8 % (10-50); Mean Corpuscular HGB Conc 32.9 g/dL (31.8-35.4); Mean Corpuscular Hemoglobin 28.9 pg (27.0-31.2); Mean Corpuscular Volume 87.9 fl (81-99); Mean Platelet Volume 8.3 fl (7.4-10.4); Monocytes # 0.4 K/mm3 (0.1-1.0); Monocytes % 7.2 % (1.7-9.3); Neutrophils # 2.4 K/mm3 (1.8-7.8); Neutrophils % 44.3 % (37.0-80.0); Platelet Count 253 K/mm3 (142-424); Red Blood Count 4.82 M/mm3 (4.20-5.40); Red Cell Distribution Width 12.5 % (11.5-17.5); White Blood Count 5.5 K/mm3 (4.8-10.8)
[2023-08-27 12:23] LABS: Alanine Aminotransferase 18 U/L (12-78); Albumin Level 4.9 g/dl (3.5-5.0); Albumin/Globulin Ratio 1.8 (1.1-1.8); Alkaline Phosphatase 53 U/L (38-126); Anion Gap 15.8 mEq/L (5-15); Aspartate Amino Transferase 24 U/L (14-36); Bilirubin,Total 0.7 mg/dl (0.2-1.3); Blood Urea Nitrogen 14 mg/dl (7-17); Calcium 9.4 mg/dl (8.4-10.2); Carbon Dioxide 27 mmol/L (22.0-30.0); Chloride 101 mmol/L (98-107); Estimated Glomerular Filt Rate 100 ml/min (>60); GFR (African American) 121 ML/MIN (>60); Globulin 2.8 g/dL (1.3-3.2); Glucose 76 mg/dl (74-100); Potassium 3.8 mmoL/L (3.5-5.1); Sodium 140 mmol/L (136-145); Total Protein,Serum 7.7 g/dl (6.3-8.2)
[2023-08-27 12:41] LABS: 25-OH Vitamin D, Total 39.5 ng/mL (30-100)
[2023-08-27 12:42] LABS: Free Thyroxine Index 2.2 ug/dL (5.93-13.13); T4 (Thyroxine) 7.2 ug/dl (5.53-11.0); Triiodothryronine (T3) Uptake 30 % (23.5-40.5)
[2023-08-27 12:52] LABS: Erythrocyte Sedimentation Rate 3 mm/hr (0-20)
[2023-08-27 12:56] LABS: Thyroid Stimulating Hormone 4.72 uIU/mL (0.465-4.68)
[2023-08-28 11:28] LABS: C-Reactive Protein < 0.2 mg/L (0-4)
[2023-08-28 20:01] LABS: Thyroglobulin Level 4.6 IU/mL (0.0-0.9)
[2023-08-28 20:56] LABS: T4 (Thyroxine) 7.3 ug/dl (5.53-11.0)
[2023-08-28 21:21] LABS: Thyroid Stimulating Hormone 4.66 uIU/mL (0.465-4.68)
[2023-09-03 08:25] LABS: Triiodothyronine (T3) Reverse 17.6
== END ==
PROVIDERS: PCP Internal Medicine; Visit Provider Internal Medicine
DX: E05.90 Thyrotoxicosis, unspecified without thyrotoxic crisis or storm (principal); Z68.1 Body mass index [BMI] 19.9 or less, adult
CPT/HCPCS: 80053; 82306; 84436; 84443; 84479; 84482; 85025; 85651; 86140; 86800

== ENCOUNTER → 2023-09-06 10:37 | Outpatient (CLI) | payer BC, OTHER, SELFPAY ==
[2023-09-07 10:11] LABS: Thyroid Peroxidase Antibodies 183 IU/mL (0-34)
== END ==
PROVIDERS: PCP Internal Medicine; Visit Provider Internal Medicine
DX: E05.90 Thyrotoxicosis, unspecified without thyrotoxic crisis or storm (principal)
CPT/HCPCS: 36415; 86376

== ENCOUNTER → 2023-09-18 13:18 | Outpatient (CLI) | payer BC, OTHER, SELFPAY ==
--- NOTE | 2023-09-18 13:19 | US_ITS ---
FINAL REPORT CLINICAL HISTORY: hyperthyroidism COMPARISON: None FINDINGS: THYROID ULTRASOUND: The right lobe of the thyroid measures 5.3 x 1 x 1.5 cm in size, and is inhomogeneous in texture although no focal masses or nodules are identified. The left lobe of the thyroid measures 5.1 x 0.6 x 1.8 cm in size. There is 1 nodule in the left lobe of the thyroid which measures 5 x 5 x 2 mm in size, is solid, hypoechoic, a TI-RADS 4 category nodule. The isthmus measures 3 mm in thickness and is unremarkable in appearance. IMPRESSION: Inhomogeneous right lobe of the thyroid without a focal nodule. Single nodule in the left lobe of the thyroid, as described a 5 mm TI-RADS 4 category nodule. By size TI-RADS criteria no follow-up is indicated at this time. Reviewed, Interpreted and Dictated by Caleb Mendiola III, MD Transcribed by Neris Crook Authenticated and [facility]
== END ==
PROVIDERS: PCP Internal Medicine; Visit Provider Internal Medicine
DX: E05.90 Thyrotoxicosis, unspecified without thyrotoxic crisis or storm (principal)
CPT/HCPCS: 76536

== ENCOUNTER 2023-11-06 10:17 | Day surgery (SDC) | payer BC, SELFPAY ==
[2023-10-31 14:07] VITALS: BMI 19.7
[2023-11-06 10:55] VITALS: BP 122/77; PULSE 71; RESP 18; TEMP 36.5; O2SAT 97
[2023-11-06 11:21] LABS: HCG Qualitative, Serum Negative (Negative)
--- NOTE | 2023-11-06 12:01 | EXP.ANES.CKL ---
[facility] Disclaimer: The information contained in this section may have been updated after the patient was seen, as this information can be updated by other users. Medical History Endometriosis PCOS (polycystic ovarian syndrome) Surgical History History of endometrial ablation History of facial surgery History of shoulder surgery History of tonsillectomy Hx of tubal ligation Family History Mother Cancer Stroke Heart attack Hypertension Father Stroke Social History Smoking Status: Current every day smoker tobacco type: e-cigarettes second hand exposure: Yes alcohol intake: never counseling provided: none substance use type: denies use current occupational status: employed Travel in the last 8 weeks: None household members: children housing: house current occupational exposures/hazards: No caffeine: No H Anesthesia Checklist Patient Identification Patient Identification: Arm Band, Family and Verbal (Name & ) Structural Data Admitted From: Home Planned Operative Procedure/s: Colonoscopy Consent for Planned Operative Procedure(s) Verified: Yes Verified Documents: Surgical Consent and History and Physical NPO Status Verified Time NPO: 07:00 Chart Verification Results Verified: CBC, BMP and HCG Additional verifications Patient : No Anesthesia Reactions: No Hx Blood Transfusions: No Blood Transfusion Reaction: No Cardiovascular Assessment Heart Sounds: S1 & S2 Pulse Rhythm: Irregular Airway Assessment Mallampati Score:: Class II C-Spine Mobility Assessed: Yes (FROM) TMJ Mobility Assessed: Yes Dentition: Good Dentition (Nothing loose per pt.) Neurological Assessment Level of Consciousness: Awake, Alert, Appropriate and Follows Commands Hx Seizures: No Numbness or tingling in extremities: No Anesthesia Plan Anesthesia Risk discussed: Yes Anesthesia Plan: Verified ASA Class: II Anesthesia Type: MAC
[2023-11-06 12:05] VITALS: O2SAT 97
--- NOTE | 2023-11-06 12:25 | HMH.SCOPE ---
Procedure: Date: 11/06/23 Patient Date of :: 1995 Procedure Performed:: Colonoscopy Indications:: The patient is a 28 year old with chronic diarrhea. The patient had a CT abdomen and pelvis last year that showed colitis of the distal colon. Performing Provider:: Osvaldo Klein MD Referring Provider:: Benigno Marie DO Sedation:: See RN records Procedure:: After placing the patient in the left lateral decubitus position, the colonoscopy was gently inserted into the rectum and under direct visualization advanced to the cecum which was identified by transillumination in the right lower quadrant, identification of the ileocecal valve, appendiceal orifice, and cecal strap. Color, texture, mucosa, and anatomy of the colon were carefully examined with the scope. Findings:: Anal canal: normal Rectum: normal Sigmoid colon: normal without polyps or inflammatory changes Descending colon: normal without polyps or inflammatory changes Splenic flexure: normal Transverse colon: normal without polyps or inflammatory changes Hepatic flexure: normal Ascending colon: normal without polyps or inflammatory changes Cecum: normal Terminal ileum: normal Impression: Normal appearing terminal ileum Normal appearing colon Random colon biopsies obtained Recommendations:: Await pathology results Follow up in GI office for further evaluation and treatment Complications:: None Estimated blood obtained (mL): 0 Colonoscopy Component Colonoscopy Component Was a colonoscopy performed during today's procedure?: Yes Recommended follow up colonoscopy of at least 10 years?: No If no, follow up colonoscopy recommended in ___ years?: n/a Reason for not recommending >/= 10 yr follow-up interval?: n/a. colonoscopy was diagnostic
[2023-11-06 12:27] VITALS: BP 102/68; PULSE 64; RESP 16; TEMP 36.3; O2SAT 100
[2023-11-06 12:37] VITALS: BP 107/73; PULSE 61; RESP 17; O2SAT 100
[2023-11-06 12:47] VITALS: BP 107/75; PULSE 63; RESP 17; O2SAT 100
--- NOTE | 2023-11-06 14:54 | EXP.ANES.I ---
[facility] Anesthesia Record Part I Anesthesia Record I Intake, IV Amount: 500 Hydration: Adequate Estimated blood loss (mL): 1 Urine output (mL): 0 Blood Products used (#): none Blood Pressure: 102/68 SaO2: 100 Pulse Rate: 64 Airway Patency: Patent Respiratory Rate: 16 Temperature: 97.3 F Patient is:: Awake and Stable Stable to PACU at:: 12:32
[2023-11-06 14:55] VITALS: BP 102/68; PULSE 64; RESP 16; TEMP 36.3; O2SAT 100
== END 2023-11-06 12:55 | disposition home or self-care (01) ==
PROVIDERS: PCP Internal Medicine; Visit Provider Internal Medicine
PROC: 0DJD8ZZ Inspection of Lower Intestinal Tract, Via Natural or Artificial Opening Endoscopic (ICD-10-PCS; CPT 45378; principal; 2023-11-06 11:30)
DX: K52.9 Noninfective gastroenteritis and colitis, unspecified (principal)
CPT/HCPCS: 45378; 84703

== ENCOUNTER → 2023-11-19 07:19 | Outpatient (CLI) | payer BC, SELFPAY ==
--- NOTE | 2023-11-19 07:34 | MR_ITS ---
FINAL REPORT CLINICAL HISTORY: thyroid nodule. COMPARISON: None FINDINGS: Multiple projection images of the neck arterial vasculature were obtained without and with contrast. The raw data images were also reviewed. The aortic arch is patent. The right common carotid artery is patent. The right internal carotid artery is patent. The right external carotid artery is patent. The right vertebral artery is patent. The vertebral arteries are codominant. The left common carotid artery is patent. The left internal carotid artery is patent. The left external carotid artery is patent. The left vertebral artery is patent. IMPRESSION: No significant stenosis is noted in either either the right or left carotid arteries. Antegrade flow bilateral vertebral arteries, which are codominant. Reviewed, Interpreted and Dictated by Jae Millard MD Transcribed by Neris Crook Authenticated and [facility]
== END ==
PROVIDERS: PCP Internal Medicine; Visit Provider Internal Medicine
DX: E04.1 Nontoxic single thyroid nodule (principal); E05.90 Thyrotoxicosis, unspecified without thyrotoxic crisis or storm
CPT/HCPCS: 70549; A9576

== ENCOUNTER → 2023-11-21 10:27 | Outpatient (CLI) | payer BC, SELFPAY ==
[2023-11-21 11:47] LABS: Free T4 (Free Thyroxine) 0.89 ng/dl (0.78-2.19)
[2023-11-22 09:48] LABS: Triiodothyronine (T3) Free 3.8 pg/mL (2.0-4.4)
== END ==
LOC: LAB 10:28
PROVIDERS: PCP Internal Medicine; Visit Provider Internal Medicine Endocrinology, Diabetes & Metabolism
DX: E06.3 Autoimmune thyroiditis (principal)
CPT/HCPCS: 36415; 84439; 84443; 84481

== ENCOUNTER 2024-02-19 07:42 | Outpatient (CLI) | payer BC, SELFPAY ==
--- NOTE | 2024-02-19 07:42 | US_ITS ---
FINAL REPORT CLINICAL HISTORY: eval GB and pancrease abd pain COMPARISON: None FINDINGS: Sonographic images of the right upper quadrant were obtained. The pancreas is partially obscured.The liver has an unremarkable appearance. The gallbladder is partially contracted with wall measuring up to 4 mm, probably related to contracted state. There are no gallstones. There is no evidence of pericholecystic fluid. There is no evidence of biliary ductal dilatation.The common duct measures 4mm. Limited images of the right kidney are unremarkable. IMPRESSION: Contracted gallbladder without gallstones or pericholecystic fluid. Reviewed, Interpreted and Dictated by Jae Millard MD Transcribed by Myesha Hall Authenticated and [facility]
== END 2024-02-19 23:59 ==
LOC: RAD 07:42
PROVIDERS: PCP Internal Medicine; Visit Provider Nurse Practitioner
DX: R10.9 Unspecified abdominal pain (principal); K52.9 Noninfective gastroenteritis and colitis, unspecified
CPT/HCPCS: 76705

== ENCOUNTER 2024-05-02 10:25 | Outpatient (CLI) | payer BC, SELFPAY ==
[2024-05-02 12:25] LABS: Chloride 105 mmol/L (98-107); Potassium 4.2 mmoL/L (3.5-5.1); Sodium 139 mmol/L (136-145)
[2024-05-02 12:28] LABS: Alanine Aminotransferase 16 U/L (12-78); Albumin Level 4.7 g/dl (3.5-5.0); Albumin/Globulin Ratio 1.8 (1.1-1.8); Alkaline Phosphatase 53 U/L (38-126); Anion Gap 12.2 mEq/L (5-15); Aspartate Amino Transferase 29 U/L (14-36); Blood Urea Nitrogen 15 mg/dl (7-17); Calcium 9.4 mg/dl (8.4-10.2); Carbon Dioxide 26 mmol/L (22.0-30.0); Estimated Glomerular Filt Rate 100 ml/min (>60); GFR (African American) 121 ML/MIN (>60); Globulin 2.6 g/dL (1.3-3.2); Glucose 87 mg/dl (74-100); Total Protein,Serum 7.3 g/dl (6.3-8.2)
[2024-05-03 08:16] LABS: Immunoglobulin A, Qn 169 mg/dL (87-352)
[2024-05-04 11:54] LABS: Basophils # 0.1 K/mm3 (0-0.2); Basophils % 2.1 % (0.1-2.0); Eosinophils # 0.1 K/mm3 (0.0-0.4); Eosinophils % 0.8 % (0.1-12.0); Hematocrit 48.2 % (37.0-47.0); Lymphocytes # 1.6 K/mm3 (0.7-4.5); Lymphocytes % 25.9 % (10-50); Mean Corpuscular Hemoglobin 30.3 pg (27.0-31.2); Mean Corpuscular Volume 97.7 fl (81-99); Mean Platelet Volume 11.8 fl (7.4-10.4); Monocytes # 0.2 K/mm3 (0.1-1.0); Monocytes % 3.6 % (1.7-9.3); Neutrophils # 4.1 K/mm3 (1.8-7.8); Neutrophils % 67.6 % (37.0-80.0); Platelet Count 245 K/mm3 (142-424); Red Blood Count 4.93 M/mm3 (4.20-5.40)
[2024-05-05 13:12] LABS: Tissue Transglutaminase IgA Ab <2 U/mL (0-3); Tissue Transglutaminase IgG Ab 3 U/mL (0-5)
== END 2024-05-02 23:59 | disposition home or self-care (01) ==
LOC: LAB 10:26
PROVIDERS: Nurse Practitioner Family; PCP Nurse Practitioner; Visit Provider Nurse Practitioner
DX: R10.9 Unspecified abdominal pain (principal); R11.2 Nausea with vomiting, unspecified; R19.7 Diarrhea, unspecified; Z80.0 Family history of malignant neoplasm of digestive organs; Z85.01 Personal history of malignant neoplasm of esophagus
CPT/HCPCS: 36415; 80053; 82784; 83516; 85025

== ENCOUNTER 2024-05-04 16:17 | Outpatient (CLI) | payer BC, SELFPAY ==
[2024-05-07 07:37] LABS: C difficile Toxins AB, EIA Negative (Negative); H. pylori Stool Ag, EIA Negative (Negative)
[2024-05-11 04:03] LABS: Pancreatic Elastase, Fecal 753 (>200)
[2024-05-11 23:08] LABS: Calprotectin, Fecal 11 ug/g (0-120)
== END 2024-05-04 23:59 | disposition home or self-care (01) ==
PROVIDERS: Nurse Practitioner; PCP Internal Medicine; Visit Provider Dietitian, Registered
DX: K52.9 Noninfective gastroenteritis and colitis, unspecified (principal); R10.9 Unspecified abdominal pain; R10.10 Upper abdominal pain, unspecified; Z80.0 Family history of malignant neoplasm of digestive organs
CPT/HCPCS: 82656; 83993; 87177; 87324; 87338

== ENCOUNTER 2024-12-04 16:33 | Emergency (ER) | payer BC, SELFPAY ==
[2024-12-04 16:34] VITALS: BP 125/77; PULSE 68; RESP 19; TEMP 36.9; O2SAT 100; BMI 19.4
--- NOTE | 2024-12-04 16:37 | ED_ITS ---
Discharge Plan Disposition Patient Disposition: Home, Self-Care Condition: Good Prescriptions Prescriptions: New ketorolac 10 mg tablet 10 mg PO Q8H PRN (Reason: pain) 5 Days Qty: 14 0RF petrolatum Ointment 1 applic topical BID PRN (Reason: dry skin) Qty: 454 0RF No Action pantoprazole 40 mg tablet,delayed release (DR/EC) 40 mg PO DAILY Patient Comments: TAKE 1 TABLET BY MOUTH ONCE DAILY BEFORE BREAKFAST, DO NOT CRUSH, CHEW, OR SPLIT fluconazole 150 mg tablet 150 mg PO Q3D Qty: 2 0RF acyclovir 400 mg tablet 400 mg PO BID Qty: 30 2RF Referrals Follow up/Referrals: Benigno Marie DO [Primary Care Provider] - See instructions Activity Restrictions/Add. Instructions Additional Instructions/Restrictions: As we discussed, your workup was overall reassuring, your CT scan did not show any evidence of appendicitis, your ultrasound showed blood flow to both your ovaries. Your right ovary is enlarged, and as we discussed, there is a possibility that even with blood flow to your ovary on the ultrasound you could be experiencing ovarian torsion. We also discussed how your clip from your tubal ligation on the right side has migrated which could be a source of some pain although less likely to be the cause of such severe pain that you were experiencing. Given that your symptoms overall improved, and after shared decision making, we have decided to discharge you from the emergency department at this time I would abstain from intercourse until following up with Dr. Lopez in regard to your clip migration as this can, understanding increase the risk of . I prescribed pain and anti-inflammatory medication as well as ointment for your hands which appear to be consistent with eczema. Please return with any new or worsening symptoms Clinical Impressions Clinical Impression: Acute right lower quadrant pain Instructions Patient Instructions: DI for Acute Abdominal Pain Print Language Print Language: Israeli Discharge ED Provider: Kris Betts General Adult HPI General Chief complaint: Abdominal Pain Stated complaint: abd pain, spotting, RT ovary pain Time Seen by Provider: 12/04/24 16:37 History of Present Illness HPI narrative: Patient presents for evaluation of right lower quadrant pain, gradual in onset starting in her periumbilical region, constant, worsening, no exacerbating or alleviating factors. Associated symptoms include scant vaginal bleeding. Patient has not had similar symptoms before. No fevers or chills or nausea or vomiting or pain elsewhere or urinary frequency or dysuria. No syncope or presyncope. Please note that above description of symptoms, in this electronic medical record under categorization of recalled from ER triage doctor by RN are reflective of an initial nursing assessment, however, is not reflective of my full history and physical exam that was personally taken and clarified. Consequentially, this preceding description of symptoms, which may include the patient's categorized chief complaint in the EMR, do not reflect my personal clinical impression, and the ultimate description of history of present illness and patient stated complaints should be deferred to this section of the note. Unless stated otherwise or congruent with this section of the note, additional signs, symptoms, or incongruence should be interpreted as inaccurate with my clinical impression. Related Data Home Medications ?Medication ?Instructions ?Recorded ?Confirmed pantoprazole 40 mg tablet,delayed 40 mg PO DAILY 06/08/24 06/08/24 release Previous Rx's ?Medication ?Instructions ?Recorded fluconazole 150 mg tablet 150 mg PO Q3D 2 doses #2 tabs 08/13/24 acyclovir 400 mg tablet 400 mg PO BID oral herpes #30 tabs 09/25/24 ketorolac 10 mg tablet 10 mg PO Q8H PRN pain 5 days #14 12/04/24 tabs mineral oil-hydrophil petrolat 1 applic topical BID PRN dry skin 12/04/24 topical ointment (petrolatum #454 grams topical ointment) Allergies Allergy/AdvReac Type Severity Reaction Status Date / Time adhesive tape (ADHESIVE TAPE) Allergy Intermediate I-RASH Verified 06/08/24 09:51 clindamycin (From CLEOCIN) Allergy Intermediate I-RASH Verified 06/08/24 09:51 nickel Allergy Intermediate Unknown Verified 06/08/24 09:51 allergy reaction red dye Allergy Unknown NA-NAUSEA/V Verified 06/08/24 09:51 OMITING PFSH PFSH Disclaimer: The information contained in this section may have been updated after the patient was seen, as this information can be updated by other users. Medical History (Updated 12/04/24 @ 19:36 by Kris Betts MD) Family history of thyroid cancer Family history of ovarian cancer Diarrhea Abdominal pain PCOS (polycystic ovarian syndrome) Endometriosis Surgical History (Updated 06/08/24 @ 09:52 by ANA Church) H/O esophagogastroduodenoscopy Hx of tubal ligation History of tonsillectomy History of facial surgery History of shoulder surgery History of endometrial ablation Family History Mother Cancer Cervical Stroke Heart attack Hypertension Father Stroke Cancer cleared from Stage 4 Stomach and Esophageal Cancer; was also in Lymph Nodes Social History Smoking Status: Current every day smoker tobacco type: e-cigarettes second hand exposure: Yes alcohol intake: never counseling provided: none substance use type: denies use current occupational status: employed Travel in the last 8 weeks: None household members: children housing: house current occupational exposures/hazards: No caffeine: Yes physical activity: walking do you feel safe at home: Yes victim of physical abuse: No victim of emotional abuse: No victim of sexual abuse: No would you like helpful sources: No Other Medical History Have you received the Flu Vaccine for this season: No Have you received the Pneumonia Vaccine: No ROS Obtained: Yes other As per HPI Physical Exam General General appearance: alert and in no apparent distress Head Head exam: atraumatic and normocephalic Eye Eye exam: Present normal appearance Neck Neck exam: Present normal inspection Chest Chest inspection: Present normal inspection and symmetric chest wall rise Respiratory Respiratory exam: Present normal lung sounds bilaterally; Absent respiratory distress Cardiovascular Cardiovascular exam: Present regular rate and normal rhythm Abdominal Exam Abdominal exam: Present soft, tenderness and guarding (Voluntary) Abdominal tenderness: Present RLQ Neurological Exam Neurological exam: Present alert and oriented X3 Psychiatric Psychiatric exam: Present normal affect and normal mood Skin Skin exam: Present warm and dry Medical Decision Making Medical Records Medical records reviewed: Yes I reviewed the patient's medical records. Screening: Per USPSTF and CDC recommendations, given the prevalence of disease in our region, it is our hospital?s policy to screen for HIV and viral Hepatitis for all patients aged 18 and over and those with ongoing risk factors. Marcel Inquiry Pt receiving controlled substance: No Vital Signs: 12/04/24 16:34 12/04/24 16:44 12/04/24 17:00 Temperature 98.5 F Temperature Source Oral Pulse Rate 61 68 Pulse Rate [Left Radial] 68 Respiratory Rate 19 Blood Pressure 125/77 137/84 Blood Pressure [Right Arm] 125/77 Blood Pressure Mean [Right Arm] 93 02 Sat by Pulse Oximetry 100 100 100 Oxygen Delivery Method Room Air Room Air Room Air 12/04/24 18:00 12/04/24 18:30 12/04/24 19:37 Temperature 98.1 F Temperature Source Pulse Rate 56 L 60 61 Pulse Rate [Left Radial] Respiratory Rate 18 Blood Pressure 115/70 138/77 112/74 Blood Pressure [Right Arm] Blood Pressure Mean [Right Arm] 02 Sat by Pulse Oximetry 100 100 Oxygen Delivery Method Room Air Room Air Room Air Lab Data Lab Results 12/04/24 16:38: Urine Color Yellow, Urine Appearance Clear, Urine pH 7.0, Ur Specific [place] 1.020, Urine Protein Negative, Urine Glucose (UA) Negative, Urine Ketones 1+, Urine Blood Negative, Urine Nitrate Negative, Urine Bilirubin Negative, Urine Urobilinogen 0.2, Ur Leukocyte Esterase Negative, Urine RBC None, Urine WBC Occasional, Ur Squamous Epith Cells Occasional, Urine Bacteria Trace, Urine Mucus 1+ 12/04/24 16:50: WBC 6.2, RBC 4.42, Hgb 13.1, Hct 37.6, MCV 85.1, MCH 29.6, MCHC 34.8, RDW 11.5, Plt Count 263, MPV 10.1, Neut % (Auto) 55.0, Lymph % (Auto) 37.9, [place] % (Auto) 5.8, Eos % (Auto) 0.6, Baso % (Auto) 0.5, Neut # (Auto) 3.4, Lymph # (Auto) 2.3, [place] # (Auto) 0.4, Eos # (Auto) 0.0, Baso # (Auto) 0.0, S odium 133 L, Potassium 3.4 L, Chloride 102, Carbon Dioxide 25, Anion Gap 9.4, BUN 14, Creatinine 0.60, Estimated Creat Clear 124, Estimated GFR 119, Est GFR ( Amer) 144, Glucose 84, Calcium 9.5, Total Bilirubin 1.2, AST 33, ALT 18, Alkaline Phosphatase 62, Total Protein 7.5, Albumin 5.0, Globulin 2.5, A lbumin/Globulin Ratio 2.0 H, Lipase 52, Serum HCG, Qual Negative, HCV Ab ROSA w/Rflx PCR Qn Negative, HIV Ag/Ab Combo Qual Negative 12/04/24 16:50 12/04/24 16:50 Orders (Tests/Meds): ED MEDICATIONS Discontinued Medications Generic Name Dose Route Start Last Admin Trade Name Freq PRN Reason Stop Dose Admin Iopamidol 75 ml 12/04/24 17:28 12/04/24 17:30 Iopamidol-370 (76%);100ml Bottle IV 12/04/24 17:29 75 ml ONCE ONE Administration Ketorolac Tromethamine 15 mg 12/04/24 17:11 12/04/24 17:14 Ketorolac 30mg/Ml Vial IV 12/04/24 17:12 15 mg ONCE ONE Administration Sodium Chloride 10 ml 12/04/24 17:28 12/04/24 17:30 Sodium Chloride 0.9% 10ml Syr (Rad Only) IV 01/03/25 17:27 10 ml NEEDED PRN Administration Maintain IV Site ORDERS Category Date Time Status CT abdomen pelvis w con Stat Cat Scan 12/04/24 17:09 Completed US transvaginal Stat Exams 12/04/24 18:39 Completed CBC w/Auto Diff [Complete Blood Count Auto Diff] Stat Lab 12/04/24 16:50 Completed CMP [Comprehensive Metabolic Panel] Stat Lab 12/04/24 16:50 Completed HCG Qualitative, Serum Stat Lab 12/04/24 16:50 Completed HIV Combo Stat Lab 12/04/24 16:50 Completed Hepatitis C Ab Qual. W/ RFX Stat Lab 12/04/24 16:50 Completed Lipase Stat Lab 12/04/24 16:50 Completed Urinalysis and Microscopic Stat Lab 12/04/24 16:38 Completed Medical Decision Narrative: Patient with history and exam per above presenting for evaluation of right lower quadrant pain Diagnoses considered include appendicitis, ovarian torsion, ruptured ovarian cyst, among others ED workup and treatment included: ED MEDICATIONS Discontinued Medications Generic Name Dose Route Start Last Admin Trade Name Freq PRN Reason Stop Dose Admin Iopamidol 75 ml 12/04/24 17:28 12/04/24 17:30 Iopamidol-370 (76%);100ml Bottle IV 12/04/24 17:29 75 ml ONCE ONE Administration Ketorolac Tromethamine 15 mg 12/04/24 17:11 12/04/24 17:14 Ketorolac 30mg/Ml Vial IV 12/04/24 17:12 15 mg ONCE ONE Administration Sodium Chloride 10 ml 12/04/24 17:28 12/04/24 17:30 Sodium Chloride 0.9% 10ml Syr (Rad Only) IV 01/03/25 17:27 10 ml NEEDED PRN Administration Maintain IV Site ORDERS Category Date Time Status CT abdomen pelvis w con Stat Cat Scan 12/04/24 17:09 Completed US transvaginal Stat Exams 12/04/24 18:39 Completed CBC w/Auto Diff [Complete Blood Count Auto Diff] Stat Lab 12/04/24 16:50 Completed CMP [Comprehensive Metabolic Panel] Stat Lab 12/04/24 16:50 Completed HCG Qualitative, Serum Stat Lab 12/04/24 16:50 Completed HIV Combo Stat Lab 12/04/24 16:50 Completed Hepatitis C Ab Qual. W/ RFX Stat Lab 12/04/24 16:50 Completed Lipase Stat Lab 12/04/24 16:50 Completed Urinalysis and Microscopic Stat Lab 12/04/24 16:38 Completed Labs were independently interpreted by me, significant for no acute findings Imaging was independently visualized and interpreted by me, significant for appropriate blood flow to bilateral ovaries please, no evidence of appendicitis Please refer to radiology report for full details. Patient had resolution of symptoms upon repeat evaluation. After shared decision making including a discussion about how diagnosis of ovarian torsion could not be completely excluded at this time with the absence of further workup and [employer] consultation, patient declines pursuing this diagnosis or other etiologies at this time and elects to be discharged at this time. Return precautions given. Critical Care Critical Care Time Critical Care Time: No
[2024-12-04 16:44] VITALS: BP 125/77; PULSE 61; O2SAT 100
[2024-12-04 16:47] LABS: Microscopic, Urine URINE MICROSCOPIC (MICROSCOPIC)
[2024-12-04 16:52] LABS: Appearance,Urine CLEAR (Clear); Bilirubin,Urine Negative (Negative); Blood, Urine Negative (Negative); Color,Urine YELLOW (Yellow); Glucose,Urine (UA) Negative (Negative); Ketones,Urine 1+ (Negative); Leukocyte Esterase,Urine Negative (Negative); Nitrate,Urine Negative (Negative); Protein,Urine Negative (Negative); Urobilinogen,Urine 0.2 EU/dl (0.2)
[2024-12-04 16:59] LABS: Basophils % 0.5 % (0.1-2.0); Eosinophils % 0.6 % (0.1-12.0); Hematocrit 37.6 % (37.0-47.0); Hemoglobin 13.1 g/dL (12.2-16.2); Lymphocytes # 2.3 K/mm3 (0.7-4.5); Lymphocytes % 37.9 % (10-50); Mean Corpuscular HGB Conc 34.8 g/dL (31.8-35.4); Mean Corpuscular Hemoglobin 29.6 pg (27.0-31.2); Mean Corpuscular Volume 85.1 fl (81-99); Mean Platelet Volume 10.1 fl (7.4-10.4); Monocytes # 0.4 K/mm3 (0.1-1.0); Monocytes % 5.8 % (1.7-9.3); Neutrophils # 3.4 K/mm3 (1.8-7.8); Platelet Count 263 K/mm3 (142-424); Red Blood Count 4.42 M/mm3 (4.20-5.40); Red Cell Distribution Width 11.5 % (11.5-17.5); White Blood Count 6.2 K/mm3 (4.8-10.8)
[2024-12-04 17:00] VITALS: BP 137/84; PULSE 68; O2SAT 100
[2024-12-04 17:06] LABS: Chloride 102 mmol/L (98-107); Sodium 133 mmol/L (136-145)
[2024-12-04 17:07] LABS: HCG Qualitative, Serum Negative (Negative); Potassium 3.4 mmoL/L (3.5-5.1)
[2024-12-04 17:09] LABS: Alanine Aminotransferase 18 U/L (12-78); Alkaline Phosphatase 62 U/L (38-126); Anion Gap 9.4 mEq/L (5-15); Aspartate Amino Transferase 33 U/L (14-36); Bilirubin,Total 1.2 mg/dl (0.2-1.3); Blood Urea Nitrogen 14 mg/dl (7-17); Carbon Dioxide 25 mmol/L (22.0-30.0); Creatinine Clearance Estimated 124 mL/min (50-200); Estimated Glomerular Filt Rate 119 ml/min (>60); GFR (African American) 144 ML/MIN (>60); Globulin 2.5 g/dL (1.3-3.2); Lipase 52 U/L (23-300); Total Protein,Serum 7.5 g/dl (6.3-8.2)
--- NOTE | 2024-12-04 17:09 | CT_ITS ---
PROCEDURE INFORMATION: Exam: CT Abdomen And Pelvis With Contrast Exam date and time: 12/04/2024 5:28 PM Age: 29 years old Clinical indication: Abdominal pain; Additional info: Rlq pain, concern for appendicitis vs ovarian path TECHNIQUE: Imaging protocol: Computed tomography of the abdomen and pelvis with contrast. Radiation optimization: All CT scans at this facility use at least one of these dose optimization techniques: automated exposure control; mA and/or kV adjustment per patient size (includes targeted exams where dose is matched to clinical indication); or iterative reconstruction. Contrast material: ISOVUE; Contrast volume: 75 ml; Contrast route: IV; COMPARISON: CT ABDOMEN PELVIS W CON 07/27/2022 1:25 PM FINDINGS: Liver: The liver is unremarkable. Mild hepatomegaly Gallbladder and biliary ducts: Gallbladder partially contracted Pancreas: Pancreas unremarkable Spleen: The spleen is unremarkable. Adrenal glands: Normal. No mass. Kidneys and ureters: No hydronephrosis. Stomach and bowel: Unremarkable. No obstruction. No mucosal thickening. Appendix: No evidence of appendicitis. Intraperitoneal space: Unremarkable. No free air. No significant fluid collection. Vasculature: Unremarkable. No abdominal aortic aneurysm. Lymph nodes: Unremarkable. No enlarged lymph nodes. Urinary bladder: Unremarkable as visualized. Reproductive: left tubal ligation clip again demonstrated. Previously demonstrated right tubal ligation clip has become detached and is now present in the cul-de-sac anterior and lateral to the rectosigmoid colon. Bones/joints: Unremarkable. No acute fracture. Soft tissues: Unremarkable. IMPRESSION: Previously demonstrated right tubal ligation clip has become detached and is now present in the cul-de-sac anterior and lateral to the rectosigmoid colon.
[2024-12-04 17:10] LABS: Calcium 9.5 mg/dl (8.4-10.2); Glucose 84 mg/dl (74-100)
[2024-12-04 17:12] LABS: Bacteria,Urine Trace /lpf; Mucus,Urine 1+ /lpf; Squamous Epithelial Cell,Urine Occasional #/hpf (0-5); WBC,Urine Occasional #/hpf (0-3)
[2024-12-04] MEDS: KETOROLAC 30MG/ML VIAL 15 MG IV (17:14)
[2024-12-04] MEDS: IOPAMIDOL-370 (76%);100ML BOTTLE 75 ML IV (17:30)
[2024-12-04] MEDS: SODIUM CHLORIDE 0.9% 10ML SYR (RAD ONLY) 10 ML IV (17:30)
[2024-12-04 18:00] VITALS: BP 115/70; PULSE 56; O2SAT 100
[2024-12-04 18:09] LABS: HIV Combo NEGATIVE (Negative)
[2024-12-04 18:17] LABS: Hepatitis C Ab Qual. W/ RFX NEGATIVE (Negative)
[2024-12-04 18:30] VITALS: BP 138/77; PULSE 60; O2SAT 100
--- NOTE | 2024-12-04 18:39 | US_ITS ---
PROCEDURE INFORMATION: Exam: US Pelvis, Transvaginal, Non-Obstetric Exam date and time: 12/04/2024 6:45 PM Age: 29 years old Clinical indication: Pelvic pain; Additional info: Severe R sided pelvic pain TECHNIQUE: Imaging protocol: Real-time transvaginal pelvic (non-obstetric) ultrasound with image documentation. Transvaginal imaging was used for better evaluation of the endometrium, adnexa, and/or cervix. COMPARISON: CT ABDOMEN PELVIS W CON 12/04/2024 5:28 PM FINDINGS: Uterus: 8 x 2.5 x 4.8 cm in length, AP and transverse dimensions. Multiple nabothian cyst demonstrated in the region of the cervix . Right ovary/adnexa: 3.8 x 3.7 x 3 cm in length, transverse in AP dimensions. Multiple non dominant follicles demonstrated. Right ovarian volume: 21.3 cc. Mild increase in right ovarian volume. Clinically correlate. Left ovary/adnexa: 2.7 x 2.3 x 2.4 cm in length, transverse in AP dimensions. Non dominant follicles demonstrated. Left ovarian volume: 7.7 cc. Urinary bladder: Urinary bladder is limited. Vasculature: Bilateral arterial and venous flow demonstrated. Intraperitoneal space: No evidence of free fluid in the cul-de-sac. Other findings: Unremarkable pelvic ultrasound. IMPRESSION: 1. Unremarkable pelvic ultrasound. 2. Mild increase in right ovarian volume. Clinically correlate.
--- NOTE | 2024-12-04 18:39 | PC.NURSE ---
calling for ultrasound to come in for vaginal ultrasound for torsion rule out
[2024-12-04 19:37] VITALS: BP 112/74; PULSE 61; RESP 18; TEMP 36.7; O2SAT 100
== END 2024-12-04 19:42 | disposition home or self-care (01) ==
PROVIDERS: Emergency Provider Emergency Medicine; PCP Internal Medicine
DX: R10.31 Right lower quadrant pain (principal); N93.9 Abnormal uterine and vaginal bleeding, unspecified
CPT/HCPCS: 74177; 76830; 80053; 81001; 83690; 84703; 85025; 86803; 87389; 96374; 99285; J1885; Q9967

== ENCOUNTER 2024-12-15 15:39 | Outpatient (CLI) | payer BC, SELFPAY ==
[2024-12-15 16:03] VITALS: BMI 19.5
[2024-12-15 16:15] LABS: Basophils % 0.5 % (0.1-2.0); Eosinophils # 0.1 K/mm3 (0.0-0.4); Eosinophils % 0.8 % (0.1-12.0); Hematocrit 37.6 % (37.0-47.0); Hemoglobin 12.8 g/dL (12.2-16.2); Lymphocytes # 2.4 K/mm3 (0.7-4.5); Mean Corpuscular Hemoglobin 29.6 pg (27.0-31.2); Monocytes # 0.4 K/mm3 (0.1-1.0); Monocytes % 5.1 % (1.7-9.3); Neutrophils # 4.7 K/mm3 (1.8-7.8); Neutrophils % 62.3 % (37.0-80.0); Platelet Count 237 K/mm3 (142-424); Red Blood Count 4.32 M/mm3 (4.20-5.40); Red Cell Distribution Width 11.7 % (11.5-17.5); White Blood Count 7.6 K/mm3 (4.8-10.8)
[2024-12-15 16:25] LABS: Albumin Level 4.9 g/dl (3.5-5.0); Chloride 101 mmol/L (98-107)
[2024-12-15 16:26] LABS: Potassium 3.7 mmoL/L (3.5-5.1); Sodium 134 mmol/L (136-145)
[2024-12-15 16:28] LABS: Blood Urea Nitrogen 13 mg/dl (7-17); Creatinine Clearance Estimated 125 mL/min (50-200); Estimated Glomerular Filt Rate 119 ml/min (>60); GFR (African American) 144 ML/MIN (>60)
[2024-12-15 16:29] LABS: Alanine Aminotransferase 18 U/L (12-78); Alkaline Phosphatase 55 U/L (38-126); Anion Gap 8.7 mEq/L (5-15); Aspartate Amino Transferase 32 U/L (14-36); Bilirubin,Total 0.8 mg/dl (0.2-1.3); Calcium 9.3 mg/dl (8.4-10.2); Carbon Dioxide 28 mmol/L (22.0-30.0); Globulin 2.4 g/dL (1.3-3.2); Glucose 83 mg/dl (74-100); Total Protein,Serum 7.3 g/dl (6.3-8.2)
[2024-12-15 16:48] LABS: HCG,Quantitative < 2 mIU/ml (0-5.42)
== END 2024-12-15 23:59 | disposition home or self-care (01) ==
LOC: PREOP 15:42
PROVIDERS: PCP Internal Medicine; Visit Provider Obstetrics & Gynecology
DX: R10.31 Right lower quadrant pain (principal)
CPT/HCPCS: 80053; 84702; 85025

== ENCOUNTER 2024-12-17 06:48 | Day surgery (SDC) | payer BC, SELFPAY ==
[2024-12-17] VITALS (11 sets, daily range): BP systolic 105–159; BP diastolic 73–95; PULSE 66–91; RESP 12–18; TEMP 36.3–36.6; O2SAT 98–100; BMI 19.5
[2024-12-17] MEDS: LACTATED RINGERS 1000ML 1,000 ML 25 ML IV (07:11)
--- NOTE | 2024-12-17 07:20 | XR_ITS ---
FINAL REPORT CLINICAL HISTORY: location of filshie clips COMPARISON: None FINDINGS: SINGLE VIEW ABDOMEN A single view of the abdomen was obtained. 2 clips are seen in the pelvis, 1 on the right and 1 on the left. IMPRESSION: 2 clips identified in the pelvis as above. Reviewed, Interpreted and Dictated by Jae Millard MD Transcribed by Myesha Hall Authenticated and [facility]
--- NOTE | 2024-12-17 08:26 | EXP.ANES.CKL ---
[facility] Disclaimer: The information contained in this section may have been updated after the patient was seen, as this information can be updated by other users. Medical History Thyroid nodule Family history of thyroid cancer Family history of ovarian cancer Diarrhea Abdominal pain PCOS (polycystic ovarian syndrome) Endometriosis Surgical History History of colonoscopy H/O esophagogastroduodenoscopy Hx of tubal ligation History of tonsillectomy History of facial surgery History of shoulder surgery History of endometrial ablation Family History Mother Cancer Cervical Stroke Heart attack Hypertension Father Stroke Cancer cleared from Stage 4 Stomach and Esophageal Cancer; was also in Lymph Nodes Social History Smoking Status: Current every day smoker tobacco type: e-cigarettes second hand exposure: Yes alcohol intake: never counseling provided: none substance use type: denies use current occupational status: employed Travel in the last 8 weeks: None household members: children housing: house current occupational exposures/hazards: No caffeine: Yes physical activity: walking do you feel safe at home: Yes victim of physical abuse: No victim of emotional abuse: No victim of sexual abuse: No would you like helpful sources: No Have you lived/traveled outside US in past 30 days?: No Contact w/someone who lives/traveled outside US past 30 days?: No Exposure to someone with infectious disease in past 14 days?: No Do you have a fever (greater than 100.4 F or 38 C)?: No Have you tested positive for COVID-19: No Exposed to someone with COVID-19 in past 14 days?: No Do you have a sore throat?: No Do you have a cough?: No Do you have any weakness?: No Do you have any diarrhea?: No Are you experiencing any unusual bleeding?: No Do you have any muscle aches/pain?: No Do you have any abdominal pain?: No Are you experiencing loss of taste or smell?: No [facility] Anesthesia Checklist Patient Identification Patient Identification: Arm Band Structural Data Admitted From: Home Planned Operative Procedure/s: Diagnostic Laparoscopy, Removal of Filshie Clips, Bilateral Salpingectomy Consent for Planned Operative Procedure(s) Verified: Yes Verified Documents: Surgical Consent and History and Physical NPO Status Verified Time NPO: 00:00 Additional verifications Anesthesia Reactions: No Hx Blood Transfusions: No Blood Transfusion Reaction: No Airway Assessment Mallampati Score:: Class I C-Spine Mobility Assessed: Yes TMJ Mobility Assessed: Yes Dentition: Good Dentition Neurological Assessment Level of Consciousness: Awake, Alert and Appropriate Anesthesia Plan Anesthesia Risk discussed: Yes Anesthesia Plan: Verified ASA Class: II Anesthesia Type: General
[2024-12-17] MEDS: LIDOCAINE 1% W/EPI 1:100,000 20ML VIAL 20 ML (09:31)
--- NOTE | 2024-12-17 10:09 | EXP.ANES.I ---
[facility] Anesthesia Record Part I Anesthesia Record I Intake, IV Amount: 650 Hydration: Adequate Estimated blood loss (mL): 5 Urine output (mL): 0 Blood Products used (#): none Blood Pressure: 159/83 SaO2: 98 Pulse Rate: 91 Airway Patency: Patent Respiratory Rate: 12 Temperature: 97.7 F Patient is:: Drowsy and Stable Stable to PACU at:: 10:02
--- NOTE | 2024-12-17 10:10 | EXP.OP.NOTE ---
Date of procedure: 12/17/24 Pre-op Diagnosis:: 1. Desires sterilization 2. Pelvic pain 3. Incidentally noted free-floating Filshie clip 4. History of endometriosis, desires screening laparoscopy Post-op Diagnosis:: 1. Desires sterilization 2. Pelvic pain 3. Incidentally noted free-floating Filshie clip 4. History of endometriosis, desires screening laparoscopy Procedure performed:: 1. Diagnostic laparoscopy 2. Filshie clip removal 3. Laparoscopic bilateral salpingectomy 4. Peritoneal biopsy Surgeon:: Carolina Lopez DO PHOTO PRINT SPECIALIST:: Klaus Gabriel Anesthesia: GETA Estimated blood loss (mL): 10 Operative findings:: 1. Bimanual examination revealed an anteverted 6-week size uterus with smooth contour without any adnexal masses. 2. Laparoscopic exam revealed normal-appearing uterus, ovaries, fallopian tubes and liver. 3. There were adhesions noted extending from omentum to the left fallopian tube and Filshie clip. The second Filshie clip was embedded at the edge of the omentum. There was only 1 small area of suspected endometriosis lying in the left side of the posterior cul-de-sac on the adnexal sidewall. This was immediately overlying the ureter. The peritoneum was grasped and from the sidewall and a peritoneal biopsy was easily obtained Operative note:: Rebecca Steel is a 29-year-old who originally presented to me after severe pain which took her to the emergency department. While in the ED she had a CT scan which noted an incidentally displaced Filshie clip. She desires permanent sterilization with a complete salpingectomy. We discussed that the Filshie clip was unlikely the cause of her pain but she requested that it be removed. She also has a longstanding history of endometriosis and she desired screening for the severity of her endometriosis. The patient was taken to the operating room where general anesthesia was obtained and noted to be adequate. SCDs were placed for thromboembolism prophylaxis and found to be working. The patient was placed in the dorsal lithotomy position using yellowfin stirrups. Timeout verified the correct patient and procedure. The patient was prepped and draped in a usual sterile fashion. A catheter was used to drain her bladder. An acorn uterine manipulator was placed and my top gloves were removed. 10mL of Lidocaine with epinepherine was injected infraumbilically and a scalpel was used to make a 5 mm infraumbilical incision with the assistance from a hemostat. The skin was tented and Optiview blunt trocar was introduced into the abdomen in the usual fashion. CO2 gas was connected with an initial pressure of 2 mmHg noted. Pneumoperitoneum was created to a pressure of 15 mmHg. The laparoscopic camera was inserted and a quick survey of the abdomen revealed grossly normal anatomy. The uterus appeared to be anteverted with a normal size shape and contour. See above findings for full detail on Filshie clip and omental adhesions. The patient was placed in Trendelenburg. 10mLs of local anesthetic was injected and a 5mm incision was then made in the right lower quadrant with careful attention to avoid the rectus muscles and vasculature and under direct laparoscopic visualization a blunt trocar was introduced into the abdominal cavity. This process was repeated on the left side with an 8 mm trocar. The fallopian tubes were identified on the cornu of the uterus and followed out to the ovaries which revealed grossly appearing anatomy. The LigaSure was used to take down the omental adhesions to the left fallopian tube and Filshie clip. A grasper was used to elevate the left fallopian tube. The Ligasure was used to grasp the fimbriated end of the fallopian tube, ensuring complete removal of the fimbriae, it was clamped, coagulated and transected. This process was repeated serially working towards the uterus to allow complete removal of the fallopian tube and Filshie clip. Careful attention was given to transected the Mesosalpinx proximal to the fallopian tube. The fallopian tube was removed from the abdominal cavity and passed off the operative field to be sent to pathology. Hemostasis was noted. Attention was then turned to the right fallopian tube and the process was repeated. Hemostasis was noted and the tube was removed and handed off the operative field to be sent to pathology. The Filshie clip which was adherent and the omentum was grasped and the LigaSure was used to carefully remove this Filshie clip. There were no bowel attachments. A full survey of the ovarian fossa, bilateral adnexa, bilateral ovaries, anterior wall of the uterus and bladder, and posterior cul-de-sac was completed in the systemic fashion. There was 1 small gunpowder lesions noted in the posterior cul-de-sac on the left pelvic sidewall. It was near the ureter which was easily visualized. The peritoneum was grasped and from the sidewall. The LigaSure was used to obtain this small peritoneal wall biopsy. Pneumoperitoneum reduced, and all ports removed. The 3 abdominal incisions were closed with 4-0 Monocryl. Dermabond was applied to each skin incision. The [place] uterine manipulator was removed. All counts were correct x2, per nursing. The patient was extubated, stable, and transferred to the PACU. She will be discharged after meeting all DC criteria to include voiding, ambulating and tolerating PO independently. Condition: stable Disposition: same day Specimens:: 1. Bilateral fallopian tubes 2. Filshie clips x 2 3. Left pelvic sidewall peritoneal biopsy Complications:: None
--- NOTE | 2024-12-17 15:03 | P.PNANES_ITS ---
[facility] Anesthesia Record Part II Anesthesia Record Part II Discharge Time: 10:42 Destination: Surgical Day Care (OP Surgery) PACU nurse assessment reviewed?: Yes Patient Condition:: Good Anesthesia Complications:: None Swallowing reflex intact?: Yes Airway Patency: Patent Cyanosis?: No Blood Pressure: 128/85 SaO2: 100 Respiratory Rate: 16 Pulse Rate: 76 Temperature: 98 F Mental Status: Alert & Oriented Pain level:: 0 Nausea and/or vomitting:: None Intake, IV Amount: 0 Hydration: Adequate
== END 2024-12-17 11:30 | disposition home or self-care (01) ==
PROVIDERS: PCP Internal Medicine; Visit Provider Obstetrics & Gynecology
PROC: (CPT 49320; principal; 2024-12-17 08:30)
DX: R10.31 Right lower quadrant pain (principal); Z30.2 Encounter for sterilization; T83.428A Displacement of other prosthetic devices, implants and grafts of genital tract, initial encounter; Z87.42 Personal history of other diseases of the female genital tract
CPT/HCPCS: 49321; 58661; 74018; J3490; J1100; J1885; J2250; J2405; J3010; J7120

== ENCOUNTER 2025-04-12 11:13 | Outpatient (CLI) | payer BC, SELFPAY ==
[2025-04-12 21:02] LABS: Free Thyroxine Index 2.6 ug/dL (5.93-13.13); T4 (Thyroxine) 7.9 ug/dl (5.53-11.0); Triiodothryronine (T3) Uptake 33 % (23.5-40.5)
[2025-04-12 21:15] LABS: Thyroid Stimulating Hormone 1.82 uIU/mL (0.465-4.68)
== END 2025-04-12 23:59 | disposition home or self-care (01) ==
LOC: LAB.DROPOF 20:27
PROVIDERS: PCP Family Medicine; Visit Provider Family Medicine
DX: E06.3 Autoimmune thyroiditis (principal); E05.90 Thyrotoxicosis, unspecified without thyrotoxic crisis or storm
CPT/HCPCS: 84436; 84443; 84479

== ENCOUNTER 2025-09-24 12:22 | Outpatient (CLI) | payer BC, SELFPAY ==
--- OUTSIDE RECORDS SUMMARY | 2025-09-24 12:25 | XMS_ITS | Clinical Summary ---
Author Organization [facility] Address [address] [place] [address] Phone Care Team Providers Care Boxer Operator Name Role Phone Unavailable Primary Care Provider Unavailabl e Allergies No known active allergies Medications No known medications Active Problems No known active problems Surgical History Surgery Date Site/Laterality Comments COLONOSCOPY 11/06/2023 [facility] H. ENDOMETRIAL ABLATION 08/05/2020 [facility] Family History Medical History Relation Name Comments No Known Problems Father colon poly ps , cancer, esophagus, stroke No Known Problems Maternal Grandmother th yroid cancer No Known Problems Mother cervical c ancer, heart attack, heart failure, high BP, high cholestrol, stroke No Known Problems Paternal Grandfather di abetes, prostate cancer No Known Problems Paternal Grandmother shakila ng cancer, breast cancer Relation Name Status Comments Father Maternal Grandfather Maternal Grandmother Mother Paternal Grandfather Paternal Grandmother Social History Tobacco Use Types Packs/Day Years Used Date Smoking Tobacco: Never Smokeless Tobacco: Never Alcohol Use Standard Drinks/Week Comments Never 0 (1 standard drink = 0.6 oz pur e alcohol) Comments Unknown Sex and Gender Information Value Date Recorded Sex Assigned at Not on file Legal Sex Female 9:27 AM EST Gender Identity Not on file Sexual Orientation Not on file Last Filed Vital Signs Vital Sign Reading Time Taken Comments Blood Pressure 120/82 11/20/2023 3:26 PM EST Pulse - - Temperature - - Respiratory Rate 16 11/20/2023 3:26 PM EST Oxygen Saturation - - Inhaled Oxygen Concentration - - Weight 59.4 kg (131 lb) 11/20/2023 3:26 PM EST Height 170.2 cm (5' 7 ) 11/20/2023 3:26 PM EST p t states Body Mass Index 20.52 11/20/2023 3:26 PM EST Plan of Treatment Health Maintenance Due Date Last Done Comments Annual Wellness Exam 1999 Hepatitis B Vaccine (1 of 3 - 19+ 3-dose series) 2015 Cervical Cancer Screening 2017 Pap Smear 2017 DTaP/TDaP/Td (2 - Td or Tdap) 02/16/2020 02/15/2010 COVID-19 Vaccine (1 - 2024-2 6 season) 2025 Influenza Vaccine (#1) 2025 Meningococcal B Vaccine Aged Out No l onger eligible based on patient's age to complete this topic Pneumococcal Vaccine 0-49 Aged Out No longer eligible based on patient's age to complete this topic Insurance O
== END 2025-09-24 23:59 | disposition home or self-care (01) ==
LOC: PREOP 12:23
PROVIDERS: PCP Family Medicine; Visit Provider Obstetrics & Gynecology
DX: Z01.812 Encounter for preprocedural laboratory examination (principal)

== ENCOUNTER 2025-09-29 09:54 | Observation (INO) | payer BC, SELFPAY ==
[2025-09-24 08:49] VITALS: BMI 20.3
[2025-09-24 13:25] LABS: Hematocrit 42.5 % (37.0-47.0); Hemoglobin 14.6 g/dL (12.2-16.2); Immature Granulocytes % 0.2 %; Mean Corpuscular HGB Conc 34.4 g/dL (31.8-35.4); Mean Corpuscular Hemoglobin 29.9 pg (27.0-31.2); Mean Corpuscular Volume 86.9 fl (81-99); Nucleated Red Blood Cells % 0 %; Platelet Count 261 K/mm3 (142-424); Red Blood Count 4.89 M/mm3 (4.20-5.40); Red Cell Distribution Width-SD 36.4 fL; White Blood Count 5.3 K/mm3 (4.8-10.8)
[2025-09-24 13:39] LABS: HCG Qualitative, Serum Negative (Negative)
[2025-09-24 13:43] LABS: Alanine Aminotransferase 17 U/L (12-78); Albumin Level 4.3 g/dl (3.5-5.0); Albumin/Globulin Ratio 1.0 (1.1-1.8); Alkaline Phosphatase 67 U/L (38-126); Anion Gap 12.5 mEq/L (5-15); Aspartate Amino Transferase 34 U/L (14-36); Bilirubin,Total 1.4 mg/dl (0.2-1.3); Blood Urea Nitrogen 12 mg/dl (7-17); Calcium 9.5 mg/dl (8.4-10.2); Carbon Dioxide 28 mmol/L (22.0-30.0); Chloride 100 mmol/L (98-107); Creatinine Clearance Estimated 97 mL/min (50-200); Creatinine,Serum 0.80 mg/dl (0.52-1.04); Estimated Glomerular Filt Rate 85 ml/min (>60); GFR (African American) 103 ML/MIN (>60); Globulin 4.2 g/dL (1.3-3.2); Glucose 90 mg/dl (74-100); Potassium 3.5 mmoL/L (3.5-5.1); Sodium 137 mmol/L (136-145); Total Protein,Serum 8.5 g/dl (6.3-8.2)
[2025-09-24 13:52] VITALS: BMI 20.3
[2025-09-29] VITALS (22 sets, daily range): BP systolic 95–134; BP diastolic 51–91; PULSE 53–77; RESP 16–18; TEMP 36.5–38; O2SAT 98–100
[2025-09-29] MEDS: ACETAMINOPHEN 500MG TAB 1000 MG PO ×3 (06:38→20:36)
[2025-09-29] MEDS: GABAPENTIN 600MG TABLET 600 MG PO (06:38)
[2025-09-29] MEDS: CELECOXIB 100MG CAPSULE 400 MG PO (06:39)
[2025-09-29] MEDS: LACTATED RINGERS 1000ML 1,000 ML 25 ML IV (06:40)
--- NOTE | 2025-09-29 07:04 | P.PNANES_ITS ---
[facility] Disclaimer: The information contained in this section may have been updated after the patient was seen, as this information can be updated by other users. Medical History Abnormal uterine bleeding Acute right lower quadrant pain Vaginitis Weight loss Given her hypothyroidism as well as her colitis is not surprising that she has had weight loss. We will approach as described above. I think this is related to her underlying diseases. Breast enlargement Colitis CT scan of the abdomen has revealed colitis twice. This was in a 6-month period. Colonoscopy completed with pathology reports listed as WNL. No microscopic colitis. Results discussed at length with patient. Right sided abdominal pain Abdominal pain Diarrhea Irregular menses IUD (intrauterine device) in place paragard Vaginal dryness DUB (dysfunctional uterine bleeding) Request for sterilization Pelvic pain in female Vulvar pruritus Inflammation associated with voluntary body piercing Mass of breast Nipple discharge Candidiasis of vagina Thyroid nodule Family history of thyroid cancer maternal grandmother Family history of ovarian cancer paternal grandmother PCOS (polycystic ovarian syndrome) Endometriosis Surgical History History of endometrial ablation History of bilateral salpingectomy History of colonoscopy H/O esophagogastroduodenoscopy Hx of tubal ligation History of tonsillectomy History of facial surgery History of shoulder surgery right jaw History of endometrial ablation Family History Mother Cancer Cervical Stroke Heart attack Hypertension Father Stroke Cancer cleared from Stage 4 Stomach and Esophageal Cancer; was also in Lymph Nodes Social History (Updated 09/29/25 @ 06:33 by Kaylin Kinney RN) Smoking Status: Current every day smoker tobacco type: e-cigarettes second hand exposure: Yes alcohol intake: never counseling provided: none substance use type: denies use current occupational status: employed Travel in the last 8 weeks?: None household members: children housing: house current occupational exposures/hazards: No caffeine: Yes physical activity: walking do you feel safe at home: Yes victim of physical abuse: No victim of emotional abuse: No victim of sexual abuse: No would you like helpful sources: No Have you lived/traveled outside US in past 30 days?: No Contact w/someone who lives/traveled outside US past 30 days?: No Exposure to someone with infectious disease in past 14 days?: No Do you have a fever (greater than 100.4 F or 38 C)?: No Have you tested positive for COVID-19?: No Exposed to someone with COVID-19 in past 14 days?: No Do you have a sore throat?: No Do you have a cough?: No Do you have any weakness?: No Are you experiencing any nausea/vomitting?: No Do you have any diarrhea?: No Are you experiencing any unusual bleeding?: No Do you have any muscle aches/pain?: No Do you have any abdominal pain?: No Are you experiencing loss of taste or smell?: No [facility] Anesthesia Checklist Patient Identification Patient Identification: Arm Band and Verbal (Name & ) Structural Data Admitted From: Home Planned Operative Procedure/s: TLH, possible MELL Consent for Planned Operative Procedure(s) Verified: Yes Verified Documents: Surgical Consent NPO Status Verified Time NPO: 00:00 Chart Verification Results Verified: CBC and BMP Additional verifications Patient : No Anesthesia Reactions: No Hx Blood Transfusions: No Blood Transfusion Reaction: No Airway Assessment Mallampati Score:: Class II C-Spine Mobility Assessed: Yes TMJ Mobility Assessed: Yes Dentition: Good Dentition Neurological Assessment Level of Consciousness: Awake, Alert and Appropriate Hx Seizures: No Numbness or tingling in extremities: No Anesthesia Plan Anesthesia Risk discussed: Yes Anesthesia Plan: Verified ASA Class: II Anesthesia Type: General
[2025-09-29] MEDS: 0.9 % SODIUM CHLORIDE 100 ML 200 ML IV (07:16)
--- NOTE | 2025-09-29 07:17 | EXP.HP ---
History of Present Illness *Admission Date: 09/29/25 *Reason for visit:: Abnormal uterine bleeding, pelvic pain *History of present illness: Mrs Leda Valladares is a 30 yo P1001 who presents to [facility] for scheduled surgery. She complains of abnormal bleeding s/p endometrial ablation 08/05/2020. She reports monthly spotting dark brown/purple discharge. This past month was red bleeding and she had vulvovaginal itching and swelling that resolved when her period ended. She requests definitive surgical intervention with hysterectomy. She has history of endometriosis. Surgical history significant for multiple laparoscopies, tubal ligation with Filshie clips and endometrial ablation. History of bilateral salpingectomy 11/2024 during laparoscopy. History of x 1. No breast complaints. No bladder or bowel complaints. Last pap smear 06/08/24 - negative. Pelvic ultrasound 11/2024 was unremarkable. [facility] Disclaimer: The information contained in this section may have been updated after the patient was seen, as this information can be updated by other users. Medical History (Updated 09/29/25 @ 07:21 by Trista Madera DO) Pelvic pain Abnormal uterine bleeding Acute right lower quadrant pain Vaginitis Weight loss Breast enlargement Colitis Right sided abdominal pain Abdominal pain Diarrhea Irregular menses IUD (intrauterine device) in place Vaginal dryness DUB (dysfunctional uterine bleeding) Request for sterilization Pelvic pain in female Vulvar pruritus Inflammation associated with voluntary body piercing Mass of breast Nipple discharge Candidiasis of vagina Thyroid nodule Family history of thyroid cancer Family history of ovarian cancer PCOS (polycystic ovarian syndrome) Endometriosis Surgical History History of endometrial ablation History of bilateral salpingectomy History of colonoscopy H/O esophagogastroduodenoscopy Hx of tubal ligation History of tonsillectomy History of facial surgery History of shoulder surgery History of endometrial ablation Family History Mother Cancer Cervical Stroke Heart attack Hypertension Father Stroke Cancer cleared from Stage 4 Stomach and Esophageal Cancer; was also in Lymph Nodes Social History (Updated 09/29/25 @ 06:33 by Kaylin Kinney RN) Smoking Status: Current every day smoker tobacco type: e-cigarettes second hand exposure: Yes alcohol intake: never counseling provided: none substance use type: denies use current occupational status: employed Travel in the last 8 weeks?: None household members: children housing: house current occupational exposures/hazards: No caffeine: Yes physical activity: walking do you feel safe at home: Yes victim of physical abuse: No victim of emotional abuse: No victim of sexual abuse: No would you like helpful sources: No Have you lived/traveled outside US in past 30 days?: No Contact w/someone who lives/traveled outside US past 30 days?: No Exposure to someone with infectious disease in past 14 days?: No Do you have a fever (greater than 100.4 F or 38 C)?: No Have you tested positive for COVID-19?: No Exposed to someone with COVID-19 in past 14 days?: No Do you have a sore throat?: No Do you have a cough?: No Do you have any weakness?: No Are you experiencing any nausea/vomitting?: No Do you have any diarrhea?: No Are you experiencing any unusual bleeding?: No Do you have any muscle aches/pain?: No Do you have any abdominal pain?: No Are you experiencing loss of taste or smell?: No Other Medical History Have you received the Flu Vaccine for this season: No Have you received the Pneumonia Vaccine: No Review of Systems Review of Systems Review of systems:: pertinent systems reviewed and negative unless documented below *Genitourinary Genitourinary: Reports abnormal vaginal bleeding and Reports pelvic pain Meds Home Medications and Allergies Home Medications ?Medication ?Instructions ?Recorded ?Confirmed ?Type acetaminophen 500 mg capsule 500 mg PO Q6H PRN Pain 07/16/25 09/29/25 History ibuprofen 800 mg tablet 800 mg PO NEEDED PRN Pain 07/16/25 09/29/25 History polyethylene glycol 3350 17 17 g PO DAILY 09/29/25 09/29/25 History gram/dose oral powder (Miralax) New Prescriptions to Start Prescriptions: Allergies Allergy/AdvReac Type Severity Reaction Status Date / Time adhesive tape (ADHESIVE TAPE) Allergy Intermediate I-RASH Verified 09/29/25 06:18 clindamycin (From CLEOCIN) Allergy Intermediate I-RASH Verified 09/29/25 06:18 nickel Allergy Intermediate Unknown Verified 09/29/25 06:18 allergy reaction Exam Data for Last 24 hours Vital signs and Labs for Last 24 Hours: Temp Pulse Resp BP Pulse Ox O2 Del Method 97.7 F 73 18 114/78 99 Room Air 09/29/25 06:20 09/29/25 06:20 09/29/25 06:20 09/29/25 06:20 09/29/25 06:20 09/29/25 06:20 Constitutional Constitutional: no acute distress and cooperative *Routine HEENT Exam Head: Present normocephalic and atraumatic Eye: Absent conjunctivae pink ENT: Present mucous membranes moist *Routine Neck Exam Neck: Present full ROM *Routine Respiratory Exam Respiratory: Present CTA bilaterally and normal respiratory effort *Routine Cardiovascular Exam Cardiovascular: Present RRR *Routine Abdominal Exam Abdominal: Present soft; Absent tenderness or distended *Routine Rectal Exam Rectal:: deferred *Routine Genitalia Exam Genitalia:: normal female *Routine Extremities Exam Extremities: Present full ROM; Absent edema or calf tenderness *Routine Neurological Exam Neurological: Present alert, moving all extremities and normal speech Routine Psychiatric Exam Psychiatric: Present normal affect and cooperative Assessment and Plan *Assessment and plan (1) Abnormal uterine bleeding: Status: Acute Category: Medical Code(s): N93.9 - Abnormal uterine and vaginal bleeding, unspecified (2) History of endometrial ablation: Status: Acute Category: Surgical Code(s): Z98.890 - Other specified postprocedural states (3) Hx of tubal ligation: Status: Acute Category: Surgical Code(s): Z98.51 - Tubal ligation status (4) Pelvic pain: Status: Acute Category: Medical Code(s): R10.20 - Pelvic and perineal pain unspecified side (5) Endometriosis: Status: Acute Category: Medical Code(s): N80.9 - Endometriosis, unspecified Plan Admit to [facility] for scheduled surgery Reviewed TLH, possible right oophorectomy in detail. She desires to keep both ovaries but if right ovary looks abnormal okay to take. Reviewed risks, benefits, alternatives, expectations and possible complications of surgery. All questions addressed and answered. She voiced understanding of risks and possible complications Consent form signed Proceed with surgery as scheduled
[2025-09-29] MEDS: METRONIDAZ/SOD CHL 500 MG/100 ML PIGGYBACK 100 MG IV ×3 (08:02→22:40)
[2025-09-29] MEDS: BUPIVACAINE 0.5% 30ML VIAL 150 MG (08:03)
--- NOTE | 2025-09-29 09:20 | P.PNANES_ITS ---
[facility] Anesthesia Record Part I Anesthesia Record I Intake, IV Amount: 1,000 Hydration: Adequate Estimated blood loss (mL): 50 Urine output (mL): 200 Blood Pressure: 97/57 SaO2: 99 Pulse Rate: 56 Airway Patency: Patent Respiratory Rate: 18 Temperature: 97.8 F Patient is:: Awake, Mask O2 and Stable Stable to PACU at:: 09:25
--- NOTE | 2025-09-29 09:22 | P.OP_ITS ---
Date of procedure: 09/29/25 Pre-op Diagnosis:: 1. Abnormal uterine bleeding 2. S/p endometrial ablation 3. Pelvic pain 4. History of endometriosis Post-op Diagnosis:: 1. Abnormal uterine bleeding 2. S/p endometrial ablation 3. Pelvic pain 4. History of endometriosis Procedure performed:: Total Laparoscopic Hysterectomy Surgeon:: Trista Madera DO Instrument Panel Assembler(s):: Nicola Castillo MD COBOL DEVELOPER:: Allison Deng Anesthesia: GETA Estimated blood loss (mL): 50 Clinical Note:: Mrs Leda Valladares is a 30 yo P1001 who presents to [facility] for scheduled surgery. She complains of abnormal bleeding s/p endometrial ablation 08/05/2020. She reports monthly spotting dark brown/purple discharge. This past month was red bleeding and she had vulvovaginal itching and swelling that resolved when her period ended. She requests definitive surgical intervention with hysterectomy. She has history of endometriosis. Surgical history significant for multiple laparoscopies, tubal ligation with Filshie clips and endometrial ablation. History of bilateral salpingectomy 11/2024 during laparoscopy. History of x 1. No breast complaints. No bladder or bowel complaints. Last pap smear 06/08/24 - negative. Pelvic ultrasound 11/2024 was unremarkable. Operative findings:: 1. On bimanual exam, uterus midposition and normal shape and size. No adnexal masses palpated. Cervix appeared grossly normal 2. On laparoscopic exam liver, bowel, stomach, uterus and bilateral ovaries grossly normal. Bilateral fallopian tubes surgically absent. Of note pelvic blood vessels appeared dilated. No evidence of endometriotic lesions or peritoneal defects. Appendix visualized and appeared grossly normal. Operative note:: Discussed risks, benefits, alternatives, expectations and possible complications of surgery. All questions addressed and answered. Patient wished to proceed with surgery. She received Ancef and Metronidazole for surgical prophylaxis. Patient was wheeled back to the operating room and placed under general anesthesia without difficulty. She was placed in the dorsal lithotomy position. She was prepped and draped in normal sterile fashion. Beginning at the vagina, a randall catheter was inserted into the bladder and draining clear urine prior to the start of the procedure. Weighted Auvuard was placed in the vaginal vault. Anterior lip of the cervix was grasped with single tooth tenaculum. Uterus sounded to 7. Berto dilators were used to dilate the cervix. Advincula uterine manipulator was inserted into the cervix with the colpotomy cup covering the cervix. Single tooth tenaculum was removed prior to complete placement of colpotomy cup over cervix. Uterine balloon was filled with 10cc of air. Vaginal balloon was filled with 60 cc of air. Weighted Auvard was removed. Attention was then turned to the abdomen. Skin just below the umbilicus was injected with 0.5% marcaine. A 1.5 cm infraumbilical incision was made. Veress n eedle was tested and inserted intrabdominally. Opening pressure was 2 mm Hg. The peritoneal cavity was insulflated to 15 mm Hg. Laparoscope within 11 mm blunt trocar was inserted intrabdominally under direct visualization. Obturator and scope were removed. Laparoscope was inserted into the trocar sleeve. Abdomen and pelvis was viewed in its entirety. Examination of the peritoneal cavity revealed no signs of injury from entry and normal anatomic structures. See findings above. Pictures were taken. Bowel was swept cephalad with blunt probe. LLQ port site was transilluminated and injected with 0.5% marcaine. A 1.5 cm incision was made and 11 mm trocar was inserted intraabdominally under direct laparoscopic visualization. Obturator was removed and sleeve was left in place. Same procedure was performed in RLQ. Left round ligament was clamped, cauterized and cut with Ligasure. Transection was carried through the Broad ligament. Same procedure was carried out on the contralateral side. Both ovaries left in situ. Care was taken to slowly separate the bladder off of the lower uterine segment with sharp and blunt dissection. Once the bladder was appropriately dissected off of the lower uterine segment. Bilateral uterine arteries were clamped, cauterized and cut using the Ligasure. Transection was carried through the cardinal ligament bilaterally. Hemostasis was noted. At the level of the colpotomy cup, the vaginal vault was incised circumferentially with the Ligasure monopolar hook. The uterus and cervix was pulled into the vagina and left in the vagina to hold pneumoperitoneum. The vaginal vault was closed with the Endostitch V-Lock barbed stitch. Pelvis was irrigated. Intraabdominal pressure was decreased to 5 mm Hg. Small amount of oozing noted on right side of vaginal closed vaginal vault. Surgicel powder was applied over closed vaginal vault. Hemostasis was noted. RLQ and LLQ trocars were removed under direct laparoscopic visualization. Pneumoperitoneum was released into the atmosphere. Infraumbilical trocar was removed under direct laparoscopic visualization to ensure no herniation of bowel or omentum. Skin incisions were reapproximated with 3-0 Vicryl. Steri strips were applied over closed skin incisions. Attention was turned to the vagina. Specimen was removed from the vagina and handed off of the sterile field. Catheter was removed from the bladder. Patient was awakened from anesthesia and taken to recovery in stable condition. Condition: stable Disposition: floor Specimens:: 1. Uterus and cervix Complications:: None
[2025-09-29] MEDS: MEPERIDINE 25MG/ML 1ML SYRINGE 12.5 MG IV (09:40)
--- NOTE | 2025-09-29 10:40 | PC.NURSE ---
Assisted up to bathroom with standby assist x1. Pt wants to try to void. States she feels alot of pressure in lower abdomen and vaginal area . However, after sitting on toilet for several minutes pt was unable to void at this time. Ambulated back to bed independently w/o diff.
[2025-09-29] MEDS: SODIUM CHLORIDE 0.9% 10ML FLUSH SYRINGE 10 ML IV (12:51)
[2025-09-29] MEDS: ONDANSETRON 4MG/2ML VIAL 4 MG IV (12:51)
[2025-09-29] MEDS: OXYCODONE 5MG IMMEDIATE RELEASE TABLET 5 MG PO ×2 (12:51→22:38)
[2025-09-29] MEDS: KETOROLAC 30MG/ML VIAL 30 MG IV ×2 (14:54→20:36)
--- NOTE | 2025-09-29 15:59 | PC.NURSE ---
1430- up to the bathroom to void. Voided moderate amt of clear / yellow urine. Reports feeling less pressure in lower abdomen and perineum. No vaginal bleeding noted on tala-pad. Ambulated in room without any difficulty. 1440-Gauze pressure dressing saturated with sero-sang drainage. New gauze pressure dressing reapplied.
--- NOTE | 2025-09-29 16:37 | PC.NURSE ---
Up to the bathroom to void. Ambulated without diff.
[2025-09-29] MEDS: POLYETHYLENE GLYCOL 3350 17 GM PACKET PO (20:35)
[2025-09-30 00:10] VITALS: BP 109/72; PULSE 70; RESP 18; TEMP 37.1; O2SAT 97
[2025-09-30] MEDS: SENNOSIDES 8.6MG/DOCUSATE 50MG TABLET 1 TAB PO ×2 (03:22→09:26)
[2025-09-30] MEDS: KETOROLAC 30MG/ML VIAL 30 MG IV (03:22)
[2025-09-30] MEDS: OXYCODONE 5MG IMMEDIATE RELEASE TABLET 5 MG PO ×2 (03:22→09:26)
[2025-09-30] MEDS: ACETAMINOPHEN 500MG TAB 1000 MG PO ×2 (03:22→09:25)
[2025-09-30 03:48] VITALS: BP 107/66; PULSE 67; RESP 16; TEMP 36.5; O2SAT 95
[2025-09-30 03:50] VITALS: O2SAT 97
[2025-09-30] MEDS: SIMETHICONE 80MG CHEWABLE TABLET 160 MG PO (03:55)
[2025-09-30 05:39] LABS: Albumin Level 4.3 g/dl (3.5-5.0); Chloride 100 mmol/L (98-107); Potassium 3.5 mmoL/L (3.5-5.1); Sodium 135 mmol/L (136-145)
[2025-09-30 05:42] LABS: Alanine Aminotransferase 14 U/L (12-78); Albumin/Globulin Ratio 2.5 (1.1-1.8); Alkaline Phosphatase 44 U/L (38-126); Anion Gap 7.5 mEq/L (5-15); Aspartate Amino Transferase 22 U/L (14-36); Bilirubin,Total 0.9 mg/dl (0.2-1.3); Blood Urea Nitrogen 9 mg/dl (7-17); Calcium 8.3 mg/dl (8.4-10.2); Carbon Dioxide 31 mmol/L (22.0-30.0); Creatinine Clearance Estimated 110 mL/min (50-200); Creatinine,Serum 0.70 mg/dl (0.52-1.04); Estimated Glomerular Filt Rate 99 ml/min (>60); GFR (African American) 120 ML/MIN (>60); Globulin 1.7 g/dL (1.3-3.2); Glucose 99 mg/dl (74-100); Total Protein,Serum 6.0 g/dl (6.3-8.2)
[2025-09-30 05:52] LABS: Hematocrit 35.0 % (37.0-47.0); Hemoglobin 11.9 g/dL (12.2-16.2); Immature Granulocytes % 0.3 %; Mean Corpuscular HGB Conc 34.0 g/dL (31.8-35.4); Mean Corpuscular Hemoglobin 29.8 pg (27.0-31.2); Mean Corpuscular Volume 87.7 fl (81-99); Nucleated Red Blood Cells % 0 %; Platelet Count 192 K/mm3 (142-424); Red Blood Count 3.99 M/mm3 (4.20-5.40); Red Cell Distribution Width-SD 36.5 fL; White Blood Count 9.7 K/mm3 (4.8-10.8)
[2025-09-30 08:30] VITALS: BP 112/65; PULSE 68; RESP 18; TEMP 37; O2SAT 98
--- NOTE | 2025-09-30 09:08 | EXP.DC.SUM ---
General Admission date:: 09/29/25 Discharge date: 09/30/25 HPI HPI HPI: POD # 1 s/p TLH Resting comfortably. Pain controlled with PO medication. Voiding without difficulty and passing flatus. Tolerating regular diet. Denies fever/chills, chest pain and shortness of breath. No lower extremity swelling. Ambulating well ad adriana. Hospital Course Hospital Course Hospital Course: Mrs Leda Valladares is a 30 yo P1001 who presents to [facility] for scheduled surgery. She complains of abnormal bleeding s/p endometrial ablation 08/05/2020. She reports monthly spotting dark brown/purple discharge. This past month was red bleeding and she had vulvovaginal itching and swelling that resolved when her period ended. She requests definitive surgical intervention with hysterectomy. She has history of endometriosis. Surgical history significant for multiple laparoscopies, tubal ligation with Filshie clips and endometrial ablation. History of bilateral salpingectomy 11/2024 during laparoscopy. History of x 1. No breast complaints. No bladder or bowel complaints. Last pap smear 06/08/24 - negative. Pelvic ultrasound 11/2024 was unremarkable. She had a total laparoscopic hysterectomy on 09/29/25. She did well postoperatively. Pain controlled. Voiding without difficulty and passing flatus. Tolerating regular diet. Ambulating well ad adriana. Vital signs stable, afebrile. Heart regular rate and rhythm. Lungs clear to auscultation. Abdomen soft, non distended with normal bowel sounds. She was discharged home POD # 1 with instructions to follow-up in the office in two weeks. Exam Data for Last 24 hours Vital signs and Labs for Last 24 Hours: Temp Pulse Resp BP Pulse Ox O2 Del Method 97.7 F 67 16 107/66 L 97 Room Air 09/30/25 03:48 09/30/25 03:48 09/30/25 03:48 09/30/25 03:48 09/30/25 03:50 09/30/25 08:00 Laboratory Results - last 24 hr 09/30/25 04:49: WBC 9.7, RBC 3.99 L, Hgb 11.9 L, Hct 35.0 L, MCV 87.7, MCH 29.8, MCHC 34.0, RDW 11.4 L, Plt Count 192, MPV 10.6 H, Neut % (Auto) 75.1, Lymph % (Auto) 17.2, [place] % (Auto) 6.9, Eos % (Auto) 0.3, Baso % (Auto) 0.2, Neut # (Auto) 7.3, Lymph # (Auto) 1.7, [place] # (Auto) 0.7, Eos # (Auto) 0.0, Baso # (Auto) 0.0, Sodium 135 L, Potassium 3.5, Chloride 100, Carbon Dioxide 31 H, Anion Gap 7.5, BUN 9, Creatinine 0.70, Estimated Creat Clear 110, Estimated GFR 99, Est GFR ( Amer) 120, Glucose 99, Calcium 8.3 L, Total Bilirubin 0.9, AST 22, ALT 14, Alkaline Phosphatase 44, Total Protein 6.0 L D, Albumin 4.3, Globulin 1.7, Albumin/Globulin Ratio 2.5 H I & O for Last 24 hours: Intake & Output 09/27/25 09/28/25 09/29/25 09/30/25 23:59 23:59 23:59 23:59 Intake Total 1400 / 1400 Output Total 0 / 0 0 / 0 Balance 1400 / 1400 0 / 0 Constitutional Constitutional: no acute distress and cooperative *Routine HEENT Exam Head: Present normocephalic and atraumatic Eye: Absent conjunctivae pink ENT: Present mucous membranes moist *Routine Neck Exam Neck: Present full ROM *Routine Respiratory Exam Respiratory: Present CTA bilaterally and normal respiratory effort *Routine Cardiovascular Exam Cardiovascular: Present RRR *Routine Abdominal Exam Abdominal: Present soft and normoactive bowel sounds; Absent tenderness or distended Comments: Laparoscopic clean/dry/intact with steri strips in place *Routine Rectal Exam Patient deferred: visual exam *Routine Exam Patient deferred: external exam *Routine Extremities Exam Extremities: Present full ROM; Absent edema or calf tenderness *Routine Neurological Exam Neurological: Present alert, moving all extremities and normal speech Routine Psychiatric Exam Psychiatric: Present normal affect and cooperative Results Data Completed and Pending Labs on day of discharge: Labs from last 24 hours 09/30/25 04:49 WBC 9.7 RBC 3.99 L Hgb 11.9 L Hct 35.0 L MCV 87.7 MCH 29.8 MCHC 34.0 RDW 11.4 L Plt Count 192 MPV 10.6 H Neut % (Auto) 75.1 Lymph % (Auto) 17.2 [place] % (Auto) 6.9 Eos % (Auto) 0.3 Baso % (Auto) 0.2 Neut # (Auto) 7.3 Lymph # (Auto) 1.7 [place] # (Auto) 0.7 Eos # (Auto) 0.0 Baso # (Auto) 0.0 Sodium 135 L Potassium 3.5 Chloride 100 Carbon Dioxide 31 H Anion Gap 7.5 BUN 9 Creatinine 0.70 Estimated Creat Clear 110 Estimated GFR 99 Est GFR ( Amer) 120 Glucose 99 Calcium 8.3 L Total Bilirubin 0.9 AST 22 ALT 14 Alkaline Phosphatase 44 Total Protein 6.0 L D Albumin 4.3 Globulin 1.7 Albumin/Globulin Ratio 2.5 H DS: Diagnosis Discharge Diagnosis (1) Status post laparoscopic hysterectomy: Status: Acute Code(s): Z90.710 - Acquired absence of both cervix and uterus Problem details: [facility] 09/29/25 (2) Abnormal uterine bleeding: Status: Acute Code(s): N93.9 - Abnormal uterine and vaginal bleeding, unspecified (3) History of endometrial ablation: Status: Acute Code(s): Z98.890 - Other specified postprocedural states (4) Hx of tubal ligation: Status: Acute Code(s): Z98.51 - Tubal ligation status (5) Pelvic pain: Status: Acute Code(s): R10.20 - Pelvic and perineal pain unspecified side (6) Endometriosis: Status: Acute Code(s): N80.9 - Endometriosis, unspecified Meds Home Medications and Allergies Home Medications ?Medication ?Instructions ?Recorded ?Confirmed ?Type acetaminophen 500 mg capsule 500 mg PO Q6HP PRN Mild Pain 07/16/25 09/29/25 History (Scale Score 1-4) ibuprofen 800 mg tablet 800 mg PO Q8H PRN pain #20 tabs 09/30/25 Rx oxycodone 5 mg tablet 5 mg PO Q4HP PRN Moderate Pain 09/30/25 Rx (4-6) #20 tabs polyethylene glycol 3350 17 17 g PO BID PRN constipation 2 09/30/25 09/29/25 Rx gram/dose oral powder (Miralax) weeks #0 grams New Prescriptions to Start Prescriptions: ibuprofen Liz Maderanifer oxycodone Liz Maderanifer Allergies Allergy/AdvReac Type Severity Reaction Status Date / Time adhesive tape (ADHESIVE TAPE) Allergy Intermediate I-RASH Verified 09/29/25 06:18 clindamycin (From CLEOCIN) Allergy Intermediate I-RASH Verified 09/29/25 06:18 nickel Allergy Intermediate Unknown Verified 09/29/25 06:18 allergy reaction Discharge Plan Disposition Patient Disposition: Home, Self-Care Condition: Good Follow up Plan Follow up with: Trista Madera DO [Staff Physician, PROPERTY CLERK] - Enter time for follow up Prescriptions/Medication Reconciliation: New oxycodone 5 mg Tablet 5 mg PO Q4HP PRN (Reason: Moderate Pain (4-6)) Qty: 20 0RF ibuprofen 800 mg tablet 800 mg PO Q8H PRN (Reason: pain) Qty: 20 0RF Continued acetaminophen 500 mg capsule 500 mg PO Q6HP PRN (Reason: Mild Pain (Scale Score 1-4)) Changed polyethylene glycol 3350 [Miralax] 17 gram/dose Powder 17 g PO BID PRN (Reason: constipation) 14 Days Qty: 0 0RF Discontinued ibuprofen 800 mg tablet 800 mg PO Q8HP PRN (Reason: Mild Pain (Scale Score 1-4)) Patient Comments: TAKE ONE TABLET BY MOUTH EVERY 8 HOURS NEEDED FOR PAIN --TAKE WITH FOOD-- Problem Reconciliation Problems Reviewed?: Yes Patient Discharge Instructions ACTIVITY: Limited activity DIET: continue same diet and regular diet Additional Instructions: Additional Instructions: You had a total laparoscopic hysterectomy. This means that your uterus and cervix was removed. The top of your vagina is closed with dissolvable sutures. You will follow-up in office for a postop visit at 2 weeks and at 6 weeks. At your 6-week postop appointment you will have a pelvic exam to ensure your cuff is healing well. Discharge: 1. Take 800 mg Ibuprofen every 8 hours as needed for pain. You can also take 1000 mg of Tylenol in between doses, every 6-8 hours and Oxycodone 5 mg, 1 tablet every 4-6 hours or longer as needed. 2. Take Miralax twice daily for at least the first 3 days and then as needed thereafter Activity: - No lifting more than 10 lbs for 6 weeks. - No driving for 7 days and/or while you are taking narcotic pain medication. - You have three incisions on your abdomen that are closed with stitches Wound care - You have stitches under your skin which will dissolve over the next 6 weeks as your body heals - Keep your wound clean and dry, ok to wash with soap and water but pat thoroughly dry Please call the office or return to the ER if you have any of the followin. heavy vaginal bleeding 2. pain that does not respond to your narcotic pain medication 3. dizziness or lightheadedness 4. abnormal discharge from your incisions Questions or concerns: It is my privilege to be your doctor. Please let me know if you have other questions or concerns. Trista Madera DO [facility] [place], [place] [address] Patient Instructions: Laparoscopic Hysterectomy Print Language: Gambian Providers Primary Care Provider: Tammie Medrano Admit Provider: Trista Madera Attending Provider: Trista Madera
[2025-09-30] MEDS: IBUPROFEN 400 MG TABLET 800 MG PO (09:25)
[2025-09-30] MEDS: POLYETHYLENE GLYCOL 3350 17 GM PACKET PO (09:26)
--- NOTE | 2025-09-30 10:22 | EXP.ANES.II ---
[facility] Anesthesia Record Part II Anesthesia Record Part II Discharge Time: 09:45 Destination: Obstetric PACU nurse assessment reviewed?: Yes Patient Condition:: Good Anesthesia Complications:: None Swallowing reflex intact?: Yes Airway Patency: Patent Cyanosis?: No Blood Pressure: 122/80 SaO2: 99 Respiratory Rate: 16 Pulse Rate: 67 Temperature: 97.8 F Mental Status: Alert & Oriented Pain level:: 2 Nausea and/or vomitting:: None Intake, IV Amount: 0 Hydration: Adequate
[2025-09-30 10:23] VITALS: BP 122/80; PULSE 67; RESP 16; TEMP 36.6; O2SAT 99
== END 2025-09-30 09:55 | disposition home or self-care (01) ==
LOC: OB 09:54
PROVIDERS: Admitting Provider Obstetrics & Gynecology; PCP Family Medicine; Visit Provider Obstetrics & Gynecology
PROC: 0UT94ZZ Resection of Uterus, Percutaneous Endoscopic Approach (ICD-10-PCS; CPT 58570; principal; 2025-09-29 07:30)
DX: N80.9 Endometriosis, unspecified (principal); Z98.890 Other specified postprocedural states; Z98.51 Tubal ligation status; Z90.710 Acquired absence of both cervix and uterus; Z97.5 Presence of (intrauterine) contraceptive device; Z80.41 Family history of malignant neoplasm of ovary; Z91.048 Other nonmedicinal substance allergy status; Z88.1 Allergy status to other antibiotic agents; Z91.09 Other allergy status, other than to drugs and biological substances; Z79.1 Long term (current) use of non-steroidal anti-inflammatories (NSAID); Z77.22 Contact with and (suspected) exposure to environmental tobacco smoke (acute) (chronic)
CPT/HCPCS: 58570; 96366 ×2; 96375 ×3; 96376; 36415; 80053; 84703; 85025; 86850; 96361; 96365; 96367; 96374; G0378; J0665; J0690; J1100; J1200; J1836; J1885; J2003; J2175; J2250; J2405; J2704; J3010; J7120

== ENCOUNTER 2025-10-14 14:20 | Outpatient (CLI) | payer BC, SELFPAY ==
[2025-10-14 14:43] LABS: Hematocrit 40.3 % (37.0-47.0); Hemoglobin 13.3 g/dL (12.2-16.2); Immature Granulocytes % 0.4 %; Mean Corpuscular HGB Conc 33.0 g/dL (31.8-35.4); Mean Corpuscular Hemoglobin 28.9 pg (27.0-31.2); Mean Corpuscular Volume 87.6 fl (81-99); Nucleated Red Blood Cells % 0 %; Platelet Count 344 K/mm3 (142-424); Red Blood Count 4.60 M/mm3 (4.20-5.40); Red Cell Distribution Width-SD 35.8 fL; White Blood Count 5.7 K/mm3 (4.8-10.8)
[2025-10-14 15:10] LABS: Alanine Aminotransferase 17 U/L (12-78); Albumin Level 4.8 g/dl (3.5-5.0); Albumin/Globulin Ratio 2.0 (1.1-1.8); Alkaline Phosphatase 55 U/L (38-126); Anion Gap 12.0 mEq/L (5-15); Aspartate Amino Transferase 25 U/L (14-36); Bilirubin,Total 0.6 mg/dl (0.2-1.3); Blood Urea Nitrogen 11 mg/dl (7-17); Calcium 9.6 mg/dl (8.4-10.2); Carbon Dioxide 28 mmol/L (22.0-30.0); Chloride 101 mmol/L (98-107); Creatinine,Serum 0.60 mg/dl (0.52-1.04); Estimated Glomerular Filt Rate 118 ml/min (>60); GFR (African American) 143 ML/MIN (>60); Globulin 2.4 g/dL (1.3-3.2); Glucose 64 mg/dl (74-100); Potassium 4.0 mmoL/L (3.5-5.1); Sodium 137 mmol/L (136-145); Total Protein,Serum 7.2 g/dl (6.3-8.2)
--- OUTSIDE RECORDS SUMMARY | 2025-10-14 16:43 | XMS_ITS | Clinical Summary ---
Author Organization [facility] Address [address] [place] [address] Phone Care Team Providers Care Executive Director Global Brand Marketing Name Role Phone Unavailable Primary Care Provider Unavailabl e Allergies No known active allergies Medications No known medications Active Problems No known active problems Surgical History Surgery Date Site/Laterality Comments COLONOSCOPY 11/06/2023 [facility] H. ENDOMETRIAL ABLATION 08/05/2020 [facility] Family History Medical History Relation Name Comments [...]
== END 2025-10-14 23:59 | disposition home or self-care (01) ==
LOC: LAB 14:21
PROVIDERS: PCP Family Medicine; Visit Provider Obstetrics & Gynecology
DX: N93.9 Abnormal uterine and vaginal bleeding, unspecified (principal); Z90.710 Acquired absence of both cervix and uterus
CPT/HCPCS: 36415; 80053; 85025

== ENCOUNTER 2025-10-27 09:44 | Outpatient (CLI) | payer BC, SELFPAY ==
--- OUTSIDE RECORDS SUMMARY | 2025-10-27 09:49 | XMS_ITS | Clinical Summary ---
Author Organization [facility] Address [address] [place] [address] Phone Care Team Providers Care Unisaw Operator Name Role Phone Unavailable Primary Care Provider Unavailabl e Allergies No known active allergies Medications No known medications Active Problems No known active problems Surgical History Surgery Date Site/Laterality Comments COLONOSCOPY 11/06/2023 [facility] H. ENDOMETRIAL ABLATION 08/05/2020 [facility] Family History Medical History Relation [...]
--- OUTSIDE RECORDS SUMMARY | 2025-10-27 09:49 | XMS_ITS | Clinical Summary ---
Author Organization [facility] Address [address] [place] [address] Phone [email or web address] Care Team Providers Care Electrotype Caster Name Role Phone Unavailable Primary Care Provider Unavailabl e Allergies Active Allergy Reactions Criticality Noted Date Comments Clindamycin Hives Low 11/05/2018 Iodinated Contrast Media Other (see comments) Low 0 02/02/2015 Vomiting Red Dye #40 (Allura Red) GI intolerance Low 018 Medications pantoprazole (PROTONIX) 40 MG EC tablet Take 40 mg by mouth. 08/17/2024 Active Active Problems No known active problems Social History Tobacco Use Types Packs/Day Years Used Date Smoking Tobacco: Every Day E-Cigarettes Smokeless Tobacco: Never Tobacco Cessation:Ready to Q uit: Not Asked; Counseling Given: Not Answered Intimate Partner Violence Answer Date R ecorded Insults You Not on file 03/13/2022 Threatens You Not on file 03/13/2022 Screams at You Not on file 03/13/2022 Physically Hurt Not on file 03/13/2022 Intimate Partner Violence Score Not on file 03/13/2022 Depression Answer Date Recorded PHQ Total Score 0 11/07/2023 Stress Answer Date Recorded Stress in your Life Not on file 09/30/2024 Dealing with Stress 3 09/30/2024 Comments Unknown Sex and Gender Information Value Date Recorded Sex Assigned at Not on file Legal Sex Female 10:22 AM CDT Gender Identity Not on file Sexual Orientation Not on file Last Filed Vital Signs Vital Sign Reading Time Taken Comments Blood Pressure 110/60 05/12/2025 10:03 AM EDT Pulse 101 05/12/2025 10:03 AM EDT Temperature 36.7 C (98.1 F) 05/12/2025 10:03 AM EDT Respiratory Rate 20 05/12/2025 10:03 AM EDT Oxygen Saturation 99% 01/01/2025 2:32 PM EST Inhaled Oxygen Concentration - - Weight 60.3 kg (133 lb) 05/12/2025 10:03 AM EDT Height 170.2 cm (5' 7 ) 05/12/2025 10:03 AM EDT Body Mass Index 20.83 05/12/2025 10:03 AM EDT Plan of Treatment Health Maintenance Due Date Last Done Comments Cervical Cancer Screening Combo 1996 Dental Cleaning/Exam 1996 HIV Screening 1996 HPV only / HPV + Pap 1996 Hepatitis C Screening 1996 Pap only testing 1996 HPV Immunization (1 - 2-dose series) 2007 Hep B Infection Screening - Triple Screen 2014 Hepatitis B Immunization (1 of 3 - 19+ 3-dose series) 2015 Pneumococcal Immunization (1 of 2 - PCV) 2015 Annual Preventive Exam 08/04/2021 08/04/2020 Covid-19 Immunization (1 - season) 2025 Influenza Immunization (#1) 2025 Tetanus Diphtheria and Pertussis Immunization (3 - Td or Tdap) 04/03/2034 04/03/2024, 02/15/2010 Meningococcal Immunization Discontinued 02/15/2010 HIB Immunization Aged Out No longer e ligible based on patient's age to complete this topic Hepatitis A Immunization Aged Out No longer eligible based on patient's age to complete this topic Polio Immunization Aged Out No longer eligible based on patient's age to complete this topic Varicella Immunization Aged Out No lo nger eligible based on patient's age to complete this topic Insurance OPT OUT NO COPAY NB
--- OUTSIDE RECORDS SUMMARY | 2025-10-27 09:50 | XMS_ITS | Encounter Summary ---
Author Organization Healthcare Address [address] [place] [address] Care Team Providers Care Velvet Cutter Name Role Phone OralAnibalbhavna Jesus APRN Primary Care Provider [phone] Encounter Details Date Type Department Care Team (Late st Contact Info) Description 05/19/2024 Lab Requisition [facility] [address] [place] [address] Crystal Velasquez MD [address] [place] [address] Diarrhea, unspecified Social History Tobacco Use Types Packs/Day Years Used Date Smoking Tobacco: Every Day Cigarettes 0.3 8 Smokeless Tobacco: Never Alcohol Use Standard Drinks/Week Comments Not Currently 0 (1 standard drink = 0.6 oz pur e alcohol) Humiliation, Afraid, Rape, and Kick questionnair e Answer Date Recorded Within the last year, have y ou been afraid of your partner or ex-partner? No 06/12/2022 Within the last year, have y ou been humiliated or emotionally abused in other ways by your partner or ex-partner? No Within the last year, have y ou been kicked, hit, slapped, or otherwise physically hurt by your partner or ex-partner? No 06/12/2022 Within the last year, have y ou been raped or forced to have any kind of sexual activity by your partner or ex-partner? No 06/12/2022 Social Connection and Isolation Panel Answer Date Recorded In a typical week, how many times do you talk on the phone with family, friends, or neighbors? More than three times a week 06/12/2022 How often do you get togethe r with friends or relatives? More than three times a week 06/12/2022 How often do you attend [facility] or pentecostalism services? More than 4 times per year 06/12/2022 Do you belong to any clubs o r organizations such as anabaptist groups, unions, fraternal or athletic groups, or school groups? Yes 06/12/2022 How often do you attend meet ings of the clubs or organizations you belong to? More than 4 times per year 06/12/2022 Are you , , di vorced, , never , or living with a partner? 06/12/2022 AUDIT-C Answer Date Recorded Q1: How often do you have a drink containing alc ohol? Monthly or less 06/12/2022 Q2: How many drinks containi ng alcohol do you have on a typical day when you are drinking? 1 or 2 06/12/2022 Q3: How often do you have si x or more drinks on one occasion? Never 06/12/2022 Overall Financial Resource Strain (CARDIA) Answe r Date Recorded How hard is it for you to pa y for the very basics like food, housing, medical care, and heating? Not hard at all 06/12/2022 PHQ-2 Answer Date Recorded Patient Health Questionnaire-2 Score 0 04/30/2024 [facility] - Occupational Stress Questionnaire Answer Date Recorded Do you feel stress - tense, restless, nervous, or anxious, or unable to sleep at night because your mind is troubled all the time - these days? Rather much 06/12/2022 Exercise Vital Sign Answer Date Recorde d On average, how many days pe r week do you engage in moderate to strenuous exercise (like a brisk walk)? 0 days 06/12/2022 On average, how many minutes do you engage in exercise at this level? 0 min 06/12/2022 Hunger Vital Sign Answer Date Recorded Within the past 12 months, y ou worried that your food would run out before you got the money to buy more. Never true 06/12/20 22 Within the past 12 months, t he food you bought just didn't last and you didn't have money to get more. Never true 06/12/2022 PRAPARE - Transportation Answer Date Re corded In the past 12 months, has l ack of transportation kept you from medical appointments or from getting medications? No 05/25 In the past 12 months, has l ack of transportation kept you from meetings, work, or from getting things needed for daily living? No 06/12/2022 Housing Stability Vital Sign Answer Luis Alfredo e Recorded In the last 12 months, was t here a time when you were not able to pay the mortgage or rent on time? No 06/12/2022 Number of Places Lived in the Last Year Not on f ile 06/12/2022 In the last 12 months, was t here a time when you did not have a steady place to sleep or slept in a long-term (including now)? No 06/12/2022 Comments Unknown Sex and Gender Information Value Date Recorded Sex Assigned at Female 03/27/2024 10:59 AM EDT Legal Sex Female 6:54 PM EDT Gender Identity Female 03/27/2024 10:59 AM EDT Sexual Orientation Straight 03/27/2024 10 :59 AM EDT documented as of this encounter Plan of Treatment Not on file documented as of this encounter Procedures Procedure Name Priority Date/Time Associated Diagnosis Comments SURGICAL PATHOLOGY EXAM Routine 05/19/2024 Diarrhea, unspecified documented in this encounter Results * Surgical Pathology Exam (05/19/2024) Case Report Surgical Pathology Case: [id number] Authorizing Provider: Crystal Velasquez MD Collected: 05/19/2024 Ordering Location: [facility] Lab Received: 05/19/2024 1316 Pathologist: Nubia Chawla MD Specimens: A) - Duodenum, duodenum biopsy B) - Gastric, gastric biopsy 05/20/2024 1:22 PM EDT [facility] Final Diagnosis A. SMALL INTESTINE, DUODENUM, BIOPSY: - NO PATHOLOGIC ABNORMALITIES. - NO EVIDENCE OF CELIAC DISEASE. B. STOMACH, BIOPSY: - PREVIOUS EROSION WITH ASSOCIATED MILD CHRONIC INFLAMMATION. - NO H. PYLORI ORGANISMS IDENTIFIED ON H&E SLIDE. 05/20/2024 1:22 PM EDT [facility] at 1322 EDT Clinical Information R19.7 - Diarrhea, unspecified [ICD-10-CM] The examined esophagus was normal. Patchy mucosal changes characterized by erythema and erosion were found in the gastric body and in the gastric antrum. The examined duodenum was normal. 05/20/2024 1:22 PM EDT [facility] Gross Description A. DUODENUM BIOPSY Received in a formalin filled container labeled with the patient's name and d uodenum biopsy are five yellow-hernandez 0.3 x 0.3 x 0.3 cm pieces of tissue entirely submitted A1. Cold Time: 0 Kurtis Perez B. GASTRIC BIOPSY Received in a formalin filled container labeled with the patient's name and g astric biopsy are two yellow-hernandez 0.3-0.4 cm pieces of tissue entirely submitted B1. Cold Time: 0 Kurtis Perez 05/20/2024 1:22 PM EDT [facility] Note: A resident was involved in the service. I attest I examined the relevant preparations for the specimens and confirmed the diagnosis or interpretation. 05/20/2024 1:22 PM EDT [facility] Tissue Stomach structure / Unknown 05/19/2024 05/19/2024 1:16 PM EDT Tissue specimen (specimen) Stomach structure / Unknown 05/19/2024 05/19/2024 1:16 PM EDT us Crystal Velasquez MD LAB PATHOLOGY ORDERABLES Final Result [facility] [address] [place] [id number] documented in this encounter Visit Diagnoses Diagnosis Diarrhea, unspecified documented in this encounter Additional Health Concerns Assessment Noted Time A fall risk assessment has been complete d for the patient 04/30/2024 10:23 AM EDT A Body Mass Index follow-up plan has been documented for the patient 04/30/2024 12:18 PM EDT documented as of this encounter Care Teams Velvet Cutter Relationship Specialty Start Date End Date Myrna Mixon APRN [address] [place] [id number] PCP - General 04/07/21 documented as of this encounter
--- OUTSIDE RECORDS SUMMARY | 2025-10-27 09:50 | XMS_ITS | Clinical Summary ---
Author Organization [facility] Address [address] [place] [address] Care Team Providers Care Police Investigator Name Role Phone Myrna Mixon TANNER Primary Care Provider [phone] Allergies Active Allergy Reactions Criticality Noted Date Comments Clindamycin Unknown - Patient st ates they do not know rxn details Low 11/05/2018 Iodinated Contrast Media Other - please document in the comment field Low 02/02/2015 Vomiting Iv Contrast Other - please docum ent in the comment field Low 02/02/2015 Vomiting Nickel Rash High 03/26/2023 Red Dye Nausea 03/26/2023 Red Dye #40 (Allura Red) Unknown - Patie nt states they do not know rxn details Low 11/05/2018 Tape/Bandaid Adhesive Rash Low 04/30/2024 Medications Yuvafem 10 MCG tablet vaginal tablet Insert 10 mcg into the vagina 2 (two) times a day. 2 Active clobetasol (Temovate) 0.05 % ointment Apply 1 Application topically. PRN 2 Active BinaxNOW COVID-19 Ag Home Test kit See administration instructions. 2 Active escitalopram (Lexapro) 20 MG tabletIndicati ons:Generalize d anxiety disorder Take 1 tablet (20 mg total) by mouth 1 (one) time each day. 30 tablet 5 2 Active hyoscyamine (Anaspaz,Levsi n) 0.125 MG tabletIndicati ons:Irritable bowel syndrome with diarrhea Take 1 tablet (0.125 mg) by mouth every 8 (eight) hours if needed for cramping or diarrhea. 60 tablet 1 4 Active pantoprazole (Protonix) 40 MG EC tabletIndicati ons:Gastric erosion determined by endoscopy Take 1 tablet (40 mg) by mouth 1 (one) time each day before breakfast. Do not crush, chew, or split. 90 tablet 1 5 Active Active Problems Problem Noted Date Diagnosed Date Candidiasis of vagina 04/30/2024 DUB (dysfunctional uterine bleeding) 04/30/2024 Endometriosis 04/30/2024 Irregular menses 04/30/2024 IUD (intrauterine device) in place 04/30/2024 Large breasts 04/30/2024 Mass of breast 04/30/2024 Nipple discharge 04/30/2024 Pelvic pain in female 04/30/2024 Vaginal dryness 04/30/2024 Vulvar pruritus 04/30/2024 Thyroid nodule 09/18/2023 Autoimmune thyroiditis 09/16/2023 Thyrotoxicosis, unspecified without thyrotoxic crisis or storm 08/27/2023 Generalized anxiety disorder 07/20/2022 GERD (gastroesophageal reflux disease) 8 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 Endometriosis determined by laparoscopy 12/26/19 14 PCOS (polycystic ovarian syndrome) 12/26/2013 Resolved Problems Problem Noted Date Diagnosed Date Resolved Date Right sided abdominal pain 04/30/2024 0 08/15/2025 Colitis 09/16/2023 08/15/2025 Abnormal weight loss 08/27/2023 025 Immunizations Immunization Administration Dates Next Due Meningococcal MCV4P 02/15/2010 Meningococcal MPSV4 02/15/2010 Tdap 04/03/2024,02/15/2010 Social History Tobacco Use Types Packs/Day Years Used Date Smoking Tobacco: Former Cigarettes 0.3 8 2 021 - 2013 Smokeless Tobacco: Never Tobacco Cessation:Counseling Given: Not Answered Alcohol Use Standard Drinks/Week Comments Not Currently [...] week 06/12/2022 How often do you attend [facility] or restorationism services? More than 4 times per year 06/12/2022 Do you belong to any clubs o r organizations such as hindu groups, unions, fraternal or athletic groups, or [...] Date Recorded Patient Health Questionnaire-2 Score 0 08/17/2024 [facility] - Occupational Stress Questionnaire Answer Date Recorded [...] place to sleep or slept in a retirement (including now)? No 06/12/2022 Comments Unknown Sex and Gender Information Value Date Recorded Sex Assigned at Female 03/27/2024 10:59 AM EDT Legal Sex Female 6:54 PM EDT Gender Identity Female 03/27/2024 10:59 AM EDT Sexual Orientation Straight 03/27/2024 10 :59 AM EDT Last Filed Vital Signs Vital Sign Reading Time Taken Comments Blood Pressure 112/76 08/17/2024 8:55 AM EDT Pulse 76 08/17/2024 8:55 AM EDT Temperature 36.6 C (97.8 F) 08/17/2024 8:55 AM EDT Respiratory Rate 18 08/20/2022 2:06 PM EDT Oxygen Saturation 98% 08/17/2024 8:55 AM EDT Inhaled Oxygen Concentration - - Weight 56.9 kg (125 lb 7.1 oz) 08/17/2024 8:55 A M EDT Height 170.2 cm (5' 7 ) 08/17/2024 8:55 AM EDT Body Mass Index 19.65 08/17/2024 8:55 AM EDT Plan of Treatment Health Maintenance Due Date Last Done Comments [facility]-Infant/Child/Adol SDOH Screenings 1996 [id number] Vaccine (#1) 2001 [facility]-Varicella Vaccines (1 of 2 - 13+ 2-dose series) 2009 [facility]- SDOH Screenings 2014 [facility]-Adult SDOH Screenings 2014 [facility]-Hepatitis B Vaccines (1 of 3 - 19+ 3-dose series) 2015 [facility]-Pneumococcal Vaccine: Pediatrics (0 to 5 Years) and At-Risk Patients (6 to 49 Years) (1 of 2 - PCV) 2015 [facility]-Zoster Vaccines (1 of 2) 2015 [facility]-Pap Smear 2017 HPV Vaccines (1 - Risk 3-dose SCDM series) 2023 [facility]-Influenza Vaccine (#1) 2025 [facility]-Depression Screening 08/17/2025 08/17/2024 [facility]-DTaP,Tdap,and Td Vaccines (3 - Td or Tdap) 04/03/2034 04/03/2024, 02/15/2010 [facility]-HIV Screening Completed 11/05/2018 [facility]-Hepatitis C Screening Completed 11/05/2018 [facility]-HIB Vaccines Aged Out No longer e ligible based on patient's age to complete this topic [facility]-Hepatitis A Vaccines Aged Out No longer eligible based on patient's age to complete this topic [facility]-IPV Vaccines Aged Out No longer e ligible based on patient's age to complete this topic [facility]-Rotavirus Vaccines Aged Out No lo nger eligible based on patient's age to complete this topic Procedures Procedure Name Priority Date/Time Associated Diagnosis Comments ACUTE HEPATITIS PANEL Routine 11/05/2018 5:02 PM EST HIV 1/2 ANTIBODY/ANTIGEN SCREEN WITH REFLEX TO HIV I/II DIFFERENTIATION Routine 11/05/2018 5:02 PM EST from Last 3 Months or Most Recently Relevant to Health Maintenance Results * HIV 1 & 2 Antibody/Antigen Screen (11/05/2018 5:02 PM EST) HIV 1 Result NONREACTIVE Screening for HIV 1 and 2 antibodies is NONREACTIVE. No confirmatory testing is required. SUNQUEST 11/05/2018 5:02 PM EST 11/05/2018 6:09 PM EST Myrnabhavna Mixon SCHOOL SERVICES OFFICER LAB BLOOD ORDERABLES Final Resu lt SUNQUEST * Acute Hepatitis Panel (11/05/2018 5:02 PM EST) Hepatitis B Surf Antigen NEGATIVE Reference Value: Negative [facility]QUEST Hepatitis C Antibody NEGATIVE Reference Range: Negative [facility]QUEST Hepatitis A Antibody IgM NEGATIVE Reference Value: Negative [facility]QUEST External Hepatitis B Core IgM (HBCM) NEGATIVE Reference Value: Negative [facility]QUEST 11/05/2018 5:02 PM EST 11/05/2018 6:09 PM EST Myrna Jesus Oral SCHOOL SERVICES OFFICER LAB BLOOD ORDERABLES Final Resu lt Performing Organization Address City/State/[facility] Co de Phone Number SUNQUEST from Last 3 Months or Most Recently Relevant to Health Maintenance Insurance [facility] Care Teams Police Investigator Relationship Specialty Start Date End Date Myrna Mixon, SCHOOL SERVICES OFFICER [address] [place] [address] PCP - General 04/07/21
--- NOTE | 2025-10-27 10:15 | CT_ITS ---
FINAL REPORT TECHNIQUE: Axial images were obtained from the iliac crest to the pubic symphysis by computed tomography pre-and postcontrast administration. Coronal and sagittal reformats were submitted. This study was performed with techniques to keep radiation doses as low as reasonably achievable (ALARA). Individualized dose reduction techniques using automated exposure control or adjustment of mA and/or kV according to the patient's size were employed. CLINICAL HISTORY: Pelvic pain after hysterectomy COMPARISON: None FINDINGS: CT PELVIS WITH AND WITHOUT CONTRAST: The patient is post hysterectomy. The GI tract in the pelvis is without acute abnormality. There is no bowel dilatation or obstruction. The appendix is normal in appearance. The uterus is absent, and the ovaries are present. There are physiologic changes in the bilateral ovaries. No adenopathy is identified. Physiologic free fluid is present. No acute ossific abnormality is present. IMPRESSION: Prior hysterectomy, without acute abnormality identified in the pelvis. Reviewed, Interpreted and Dictated by Alysa Kruger MD Transcribed by Neris Crook Authenticated and [facility]
[2025-10-27] MEDS: SODIUM CHLORIDE 0.9% 10ML SYR (RAD ONLY) 10 ML IV (10:31)
[2025-10-27] MEDS: IOPAMIDOL-370 (76%);100ML BOTTLE 75 ML IV (10:31)
== END 2025-10-27 23:59 | disposition home or self-care (01) ==
LOC: RAD 09:45
PROVIDERS: PCP Family Medicine; Visit Provider Obstetrics & Gynecology
DX: N93.9 Abnormal uterine and vaginal bleeding, unspecified (principal); R10.20 Pelvic and perineal pain unspecified side; Z90.710 Acquired absence of both cervix and uterus
CPT/HCPCS: 72194; Q9967